=== PATIENT | female | born 1970 | race Caucasian/White ===

== ENCOUNTER → 2017-10-20 14:40 | Outpatient (CLI) | payer MEDICARE, BC, SELFPAY ==
[2017-10-20 21:50] LABS: Amphetamine/Metha Screen,Urine Negative ng/mL (<1000); Barbiturates Screen,Urine Negative ng/mL (<200); Benzodiazepines Screen,Urine Negative ng/mL (200); Cannabinoid Screen,Urine Negative ng/mL (<50); Cocaine Screen,Urine Negative ng/g (<300); Methadone Screen,Urine Negative ng/mL (<300); Opiate Screen,Urine Negative ng/mL (<300); Phencyclidine Screen,Urine Negative ng/mL (<25)
[2017-10-30 17:19] LABS: Opiates Negative (Cutoff=100)
== END ==
PROVIDERS: PCP Anesthesiology; Visit Provider Anesthesiology
DX: Z79.899 Other long term (current) drug therapy (principal)
CPT/HCPCS: 80305; 80361; 80365; G0480

== ENCOUNTER → 2017-11-09 10:14 | Outpatient (POV) | payer MEDICARE, BC, SELFPAY ==
[2017-11-09 10:34] VITALS: BP 148/95; PULSE 77; RESP 19; O2SAT 96; BMI 37.0
--- NOTE | 2017-11-09 11:00 | HMH.PAINSOAP ---
[facility] Pain Management SOAP Note Subjective:: She is a pleasant 47-year-old white female who presents today for medication refills. We are treating her for pain secondary to degenerative disc disease of her lumbar spine. She also has bilateral knee pain. She also has facet arthropathy. Patient is doing well at this time she is had bariatric surgery and is down 47 pounds. Patient states she still has the pain in her back and knees. States the pain is achy and dull. Pain is axial in nature. patient is currently being medically managed with [place] 5 mg 1 p.o. 3 times a day and tramadol 50 mg 1 by mouth 3 times a day. Patient is doing well with this regimen she states that it decreases her pain 50-60%. Patient denies side effects to pain medication. Patient's UDS was negative for all substances in the past. We will have her pill counted today prior to her receiving her new prescriptions. The patient and I had a discussion about this and she understands. Patient's dalton #[id number] reviewed and appropriate. ROS General: no recent weight change, no fever, no sleep disturbances Respiratory: no cough, no shortness of air, no recurring pulmonary infections Cardiovascular/Peripheral Vascular: No chest pain, No palpitations, no edema, no shortness of breath. Gastrointestinal: no incontinence, normal bowel movements reported Genitourinary: no incontinence Musculoskeletal: Lumbar back pain, bilateral knee pain Psychiatric: normal mood/ affect, Neurological: [denies weakness in extremities], [denies balance issues] Patient states the pain is Objective:: Physical Exam General: Alert and oriented x3, no acute distress, pleasant and cooperative, [on room air] Lungs: Resps E/U, Symmetrical chest expansion, Eyes: PERRL Musculoskeletal: Flexion and extension of lumbar spine somewhat guarded secondary to pain, deep tendon reflexes normal, strength in upper and lower extremities [5/5], [abnormal gait noted] Neurological: speech clear, machine tank operator equal, no gross sensory deficits Assessment:: Degenerative disc disease of the lumbar spine, lumbar radiculopathy, 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 Patient is supposed to take her medication for pill count by the end of today. If patient passes the pill count appropriately we will give her 2 prescriptions for [place] 5 mg p.o. 3 times daily. Patient's DALTON #[id number] reviewed and appropriate. Dr. Ibarra is reviewed this chart and agrees with this plan. We will see this patient again in 3 months. We also discussed potential facet injections in the future and RFA. This note was dictated using voice recognition software may contain errors or omissions
--- NOTE | 2017-11-09 11:03 | P.CONS_ITS ---
[facility] Pain Management SOAP Note Subjective:: She is a pleasant 47-year-old white female who presents today for medication refills. We are treating her for pain secondary to degenerative disc disease of her lumbar spine. She also has bilateral knee pain. She also has facet arthropathy. Patient is doing well at this time she is had bariatric surgery and is down 47 pounds. Patient states she still has the pain in her back and knees. States the pain is achy and dull. Pain is axial in nature. patient is currently being medically managed with [place] 5 mg 1 p.o. 3 times a day and tramadol 50 mg 1 by mouth 3 times a day. Patient is doing well with this regimen she states that it decreases her pain 50-60%. Patient denies side effects to pain medication. Patient's UDS was negative for all substances in the past. We will have her pill counted today prior to her receiving her new prescriptions. The patient and I had a discussion about this and she understands. Patient's dalton #[id number] reviewed and appropriate. ROS General: no recent weight change, no fever, no sleep disturbances Respiratory: no cough, no shortness of air, no recurring pulmonary infections Cardiovascular/Peripheral Vascular: No chest pain, No palpitations, no edema, no shortness of breath. Gastrointestinal: no incontinence, normal bowel movements reported Genitourinary: no incontinence Musculoskeletal: Lumbar back pain, bilateral knee pain Psychiatric: normal mood/ affect, Neurological: [denies weakness in extremities], [denies balance issues] Patient states the pain is Objective:: Physical Exam General: Alert and oriented x3, no acute distress, pleasant and cooperative, [ on room air] Lungs: Resps E/U, Symmetrical chest expansion, Eyes: PERRL Musculoskeletal: Flexion and extension of lumbar spine somewhat guarded secondary to pain, deep tendon reflexes normal, strength in upper and lower extremities [5/5], [abnormal gait noted] Neurological: speech clear, floor care technician equal, no gross sensory deficits Assessment:: Degenerative disc disease of the lumbar spine, lumbar radiculopathy, 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 Patient is supposed to take her medication for pill count by the end of today. If patient passes the pill count appropriately we will give her 2 prescriptions for [place] 5 mg p.o. 3 times daily. Patient's DALTON #[id number] reviewed and appropriate. Dr. Ibarra is reviewed this chart and agrees with this plan. We will see this patient again in 3 months. We also discussed potential facet injections in the future and RFA. This note was dictated using voice recognition software may contain errors or omissions
== END ==
PROVIDERS: Family Provider Nurse Practitioner Family; PCP Anesthesiology; Visit Provider Clinical Nurse Specialist Family Health
DX: M54.16 Radiculopathy, lumbar region (principal)
CPT/HCPCS: 99212

== ENCOUNTER → 2018-01-14 14:27 | Outpatient (REF) | payer MEDICARE, BC, SELFPAY ==
[2018-01-18 18:52] LABS: Amphetamine/Metha Screen,Urine Negative ng/mL (<1000); Barbiturates Screen,Urine Negative ng/mL (<200); Benzodiazepines Screen,Urine Negative ng/mL (200); Cannabinoid Screen,Urine Negative ng/mL (<50); Cocaine Screen,Urine Negative ng/g (<300); Methadone Screen,Urine Negative ng/mL (<300); Opiate Screen,Urine Negative ng/mL (<300); Phencyclidine Screen,Urine Negative ng/mL (<25)
== END ==
LOC: LAB 14:27
PROVIDERS: Visit Provider Nurse Practitioner Family
DX: Z79.899 Other long term (current) drug therapy (principal)
CPT/HCPCS: 80305

== ENCOUNTER → 2018-02-17 07:41 | Outpatient (CLI) | payer MEDICARE, BC, SELFPAY ==
[2018-02-17 08:21] LABS: Basophils # 0.1 K/mm3 (0-0.2); Basophils % 1.4 % (0.1-2.0); Eosinophils # 0.4 K/mm3 (0.0-0.4); Eosinophils % 5.1 % (0.1-12.0); Hemoglobin 14.6 g/dL (12.2-16.2); Lymphocytes # 3.1 K/mm3 (0.7-4.5); Lymphocytes % 41.6 K/mm3 (10-50); Mean Corpuscular HGB Conc 31.7 g/dL (31.8-35.4); Mean Corpuscular Hemoglobin 31.4 pg (27.0-31.2); Mean Corpuscular Volume 99.1 fl (81-99); Mean Platelet Volume 7.1 fl (7.4-10.4); Monocytes # 0.4 K/mm3 (0.1-1.0); Monocytes % 5.2 % (1.7-9.3); Neutrophils # 3.5 K/mm3 (1.8-7.8); Neutrophils % 46.7 % (37.0-80.0); Platelet Count 339 K/mm3 (142-424); Red Blood Count 4.65 M/mm3 (4.20-5.40); Red Cell Distribution Width 12.2 % (11.5-17.5); White Blood Count 7.5 K/mm3 (4.8-10.8)
[2018-02-17 08:43] LABS: Alanine Aminotransferase 21 U/L (12-78); Albumin Level 3.8 gm/dL (3.4-5.0); Albumin/Globulin Ratio 1.1 (1.1-1.8); Alkaline Phosphatase 101 U/L (46-116); Anion Gap 11.5 mEq/L (5-15); Aspartate Amino Transferase 17 U/L (15-37); Bilirubin,Total 0.2 mg/dL (0.2-1.0); Blood Urea Nitrogen 14 mg/dL (7-18); Calcium 9.5 mg/dL (8.5-10.1); Carbon Dioxide 30 mmol/L (21.0-32.0); Chloride 106 mmol/L (98-107); Chol/HDL Ratio 2.5 (1-3.5); Cholesterol 145 mg/dL (140-200); Creatinine,Serum 0.88 mg/dL (0.55-1.02); Estimated Glomerular Filt Rate 68 ml/min (>60); GFR (African American) 83 ML/MIN (>60); Globulin 3.4 gm/dl (1.3-3.2); Glucose 68 mg/dL (74-106); HDL Cholesterol 57 mg/dL (29-89); LDL Cholesterol 72 mg/dL (0-130); Potassium 4.5 mmoL/L (3.5-5.1); Sodium 143 mmol/L (136-145); Thyroid Stimulating Hormone 1.07 uIU/ml (0.358-3.740); Total Protein,Serum 7.2 gm/dL (6.4-8.2); Triglycerides 82 mg/dL (30-200); VLDL Cholesterol 16 mg/dL (0-40)
[2018-02-17 11:58] LABS: Hemoglobin A1C 6.3 % (0.0-7.0)
[2018-02-17 14:01] LABS: Amphetamine/Metha Screen,Urine Negative ng/mL (<1000); Barbiturates Screen,Urine Negative ng/mL (<200); Benzodiazepines Screen,Urine Negative ng/mL (200); Cannabinoid Screen,Urine Negative ng/mL (<50); Cocaine Screen,Urine Negative ng/g (<300); Methadone Screen,Urine Negative ng/mL (<300); Opiate Screen,Urine Negative ng/mL (<300); Phencyclidine Screen,Urine Negative ng/mL (<25)
[2018-02-18 11:18] LABS: Vitamin D 25 Hydroxy 57.3 ng/mL (30.0-100.0)
== END ==
PROVIDERS: Visit Provider Nurse Practitioner Family
DX: E11.9 Type 2 diabetes mellitus without complications (principal); Z79.899 Other long term (current) drug therapy
CPT/HCPCS: 36415; 80053; 80061; 80305; 82652; 83036; 84436; 84443; 85025

== ENCOUNTER → 2018-06-14 13:45 | Outpatient (POV) | payer BC, SELFPAY ==
--- NOTE | 2018-06-14 13:56 | XR_ITS ---
XR wrist LT min 3V HISTORY ITS.REASON: left wrist pain ORDERING PHYSICIAN: Elvia Negrete MD PATIENT AGE: 48 years Comparison: None FINDINGS: No fracture or dislocation. No lytic or blastic change. There is normal mineralization.. The joint spaces are well-preserved. No significant degenerative/arthritic changes. No erosive changes evident.. Small calcific density is present at the space between the base of the first and second metacarpals on the oblique view nonspecific IMPRESSION: Essentially negative left wrist
== END ==
PROVIDERS: Family Provider Nurse Practitioner Family; PCP Anesthesiology; Visit Provider Specialist
DX: M25.532 Pain in left wrist (principal); R29.898 Other symptoms and signs involving the musculoskeletal system; R20.2 Paresthesia of skin
CPT/HCPCS: 73110; 95886; 95908

== ENCOUNTER → 2018-06-23 14:46 | Outpatient (CLI) | payer BC, SELFPAY ==
--- NOTE | 2018-06-23 15:08 | XR_ITS ---
XR chest 2V HISTORY: ITS.REASON: HTN, SMOKER ORDERING PHYSICIAN: Edgar Barrow MD PATIENT AGE: 48 years COMPARISON: 10/23/2014 FINDINGS: The cardiomediastinal silhouette and pulmonary vascularity are within normal limits. The lungs are clear without infiltrates, suspicious nodules, or pleural effusions. No acute bony abnormalities. IMPRESSION: Negative chest, no acute finding
[2018-06-23 15:41] LABS: Anion Gap 10.8 mEq/L (5-15); Blood Urea Nitrogen 17 mg/dL (7-18); Calcium 9.4 mg/dL (8.5-10.1); Carbon Dioxide 31 mmol/L (21.0-32.0); Chloride 104 mmol/L (98-107); Creatinine,Serum 0.87 mg/dL (0.55-1.02); Estimated Glomerular Filt Rate 69 ml/min (>60); GFR (African American) 83 ML/MIN (>60); Glucose 63 mg/dL (74-106); Potassium 4.8 mmoL/L (3.5-5.1); Sodium 141 mmol/L (136-145)
[2018-06-23 15:58] LABS: Basophils # 0.1 K/mm3 (0-0.2); Basophils % 1.3 % (0.1-2.0); Eosinophils # 0.4 K/mm3 (0.0-0.4); Eosinophils % 4.8 % (0.1-12.0); Hematocrit 44.7 % (37.0-47.0); Hemoglobin 14.7 g/dL (12.2-16.2); Lymphocytes # 2.6 K/mm3 (0.7-4.5); Lymphocytes % 32.7 K/mm3 (10-50); Mean Corpuscular Hemoglobin 31.9 pg (27.0-31.2); Mean Corpuscular Volume 96.7 fl (81-99); Mean Platelet Volume 6.5 fl (7.4-10.4); Monocytes # 0.4 K/mm3 (0.1-1.0); Monocytes % 4.9 % (1.7-9.3); Neutrophils # 4.5 K/mm3 (1.8-7.8); Neutrophils % 56.4 % (37.0-80.0); Platelet Count 297 K/mm3 (142-424); Red Blood Count 4.62 M/mm3 (4.20-5.40); Red Cell Distribution Width 12.5 % (11.5-17.5)
== END ==
PROVIDERS: PCP Nurse Practitioner Family; Visit Provider Orthopaedic Surgery
DX: Z01.818 Encounter for other preprocedural examination (principal); G56.02 Carpal tunnel syndrome, left upper limb
CPT/HCPCS: 36415; 71046; 80048; 85025; 93005

== ENCOUNTER → 2019-03-16 13:26 | Outpatient (CLI) | payer MEDICARE, BC, SELFPAY ==
[2019-03-16 14:18] LABS: Basophils # 0.1 K/mm3 (0-0.2); Eosinophils # 0.6 K/mm3 (0.0-0.4); Hematocrit 44.2 % (37.0-47.0); Lymphocytes # 2.9 K/mm3 (0.7-4.5); Lymphocytes % 35.5 % (10-50); Mean Corpuscular HGB Conc 31.7 g/dL (31.8-35.4); Mean Corpuscular Hemoglobin 32.5 pg (27.0-31.2); Mean Corpuscular Volume 102.5 fl (81-99); Mean Platelet Volume 7.7 fl (7.4-10.4); Monocytes # 0.4 K/mm3 (0.1-1.0); Monocytes % 4.7 % (1.7-9.3); Neutrophils # 4.2 K/mm3 (1.8-7.8); Neutrophils % 51.7 % (37.0-80.0); Platelet Count 365 K/mm3 (142-424); Red Blood Count 4.31 M/mm3 (4.20-5.40); Red Cell Distribution Width 13.2 % (11.5-17.5); White Blood Count 8.1 K/mm3 (4.8-10.8)
[2019-03-16 14:43] LABS: Alanine Aminotransferase 39 U/L (12-78); Albumin Level 3.6 gm/dL (3.4-5.0); Albumin/Globulin Ratio 1.1 (1.1-1.8); Alkaline Phosphatase 94 U/L (46-116); Anion Gap 13.3 mEq/L (5-15); Aspartate Amino Transferase 21 U/L (15-37); Bilirubin,Total 0.4 mg/dL (0.2-1.0); Blood Urea Nitrogen 17 mg/dL (7-18); Calcium 8.7 mg/dL (8.5-10.1); Carbon Dioxide 28 mmol/L (21.0-32.0); Chloride 102 mmol/L (98-107); Chol/HDL Ratio 3.8 (1-3.5); Cholesterol 183 mg/dL (140-200); Creatinine,Serum 0.93 mg/dL (0.55-1.02); Estimated Glomerular Filt Rate 64 ml/min (>60); GFR (African American) 77 ML/MIN (>60); Globulin 3.4 gm/dl (1.3-3.2); Glucose 114 mg/dL (74-106); HDL Cholesterol 48 mg/dL (29-89); LDL Cholesterol 105 mg/dL (0-130); Potassium 4.3 mmoL/L (3.5-5.1); Sodium 139 mmol/L (136-145); T4 (Thyroxine) 8.3 ug/dl (4.7-13.3); Thyroid Stimulating Hormone 3.33 uIU/ml (0.358-3.740); Triglycerides 152 mg/dL (30-200); VLDL Cholesterol 30 mg/dL (0-40)
[2019-03-16 15:44] LABS: Hemoglobin A1C 6.8 % (0.0-7.0)
[2019-03-18 07:14] LABS: Microalbumin, Urine 20.1 ug/mL (Not Estab.); Vitamin D 25 Hydroxy 34.2 ng/mL (30.0-100.0)
== END ==
PROVIDERS: Visit Provider Nurse Practitioner Family
DX: E11.9 Type 2 diabetes mellitus without complications (principal); E66.9 Obesity, unspecified; R53.83 Other fatigue; Z79.899 Other long term (current) drug therapy; Z79.4 Long term (current) use of insulin
CPT/HCPCS: 80053; 80061; 82043; 82652; 83036; 84436; 84443; 85025

== ENCOUNTER → 2020-07-18 18:07 | Outpatient (CLI) | payer MEDICARE, BC, SELFPAY ==
[2020-07-18 18:46] LABS: Basophils # 0.1 K/mm3 (0-0.2); Basophils % 1.3 % (0.1-2.0); Eosinophils # 0.5 K/mm3 (0.0-0.4); Eosinophils % 4.4 % (0.1-12.0); Hematocrit 47.1 % (37.0-47.0); Lymphocytes # 3.4 K/mm3 (0.7-4.5); Mean Corpuscular HGB Conc 31.9 g/dL (31.8-35.4); Mean Corpuscular Hemoglobin 31.9 pg (27.0-31.2); Mean Platelet Volume 7.4 fl (7.4-10.4); Monocytes # 0.5 K/mm3 (0.1-1.0); Monocytes % 4.9 % (1.7-9.3); Neutrophils # 5.9 K/mm3 (1.8-7.8); Neutrophils % 56.4 % (37.0-80.0); Platelet Count 330 K/mm3 (142-424); Red Blood Count 4.72 M/mm3 (4.20-5.40); Red Cell Distribution Width 12.8 % (11.5-17.5); White Blood Count 10.4 K/mm3 (4.8-10.8)
[2020-07-18 18:50] LABS: Alanine Aminotransferase 20 U/L (12-78); Albumin Level 4.4 g/dl (3.5-5.0); Albumin/Globulin Ratio 1.4 (1.1-1.8); Alkaline Phosphatase 114 U/L (38-126); Anion Gap 11.5 mEq/L (5-15); Aspartate Amino Transferase 28 U/L (14-36); Bilirubin,Total 0.4 mg/dl (0.2-1.3); Blood Urea Nitrogen 16 mg/dl (7-17); Calcium 10.1 mg/dl (8.4-10.2); Carbon Dioxide 30 mmol/L (22.0-30.0); Chloride 105 mmol/L (98-107); Chol/HDL Ratio 4.1 (1-3.5); Cholesterol 229 mg/dl (140-200); Estimated Glomerular Filt Rate 66 ml/min (>60); GFR (African American) 80 ML/MIN (>60); Globulin 3.1 g/dL (1.3-3.2); Glucose 69 mg/dl (74-100); HDL Cholesterol 56 mg/dl (40-60); Potassium 4.5 mmoL/L (3.5-5.1); Sodium 142 mmol/L (136-145); Total Protein,Serum 7.5 g/dl (6.3-8.2); Triglycerides 338 mg/dl (30-150); VLDL Cholesterol 68 mg/dL (0-40)
[2020-07-18 19:02] LABS: Direct LDL Cholesterol 127.02 mg/dL (100-129)
[2020-07-18 19:06] LABS: T4 (Thyroxine) 8.8 ug/dl (5.53-11.0)
[2020-07-18 19:20] LABS: Thyroid Stimulating Hormone 0.79 uIU/mL (0.465-4.68)
[2020-07-18 20:33] LABS: Creatinine,Urine Random 85 mg/dL (Not Estab.); Hemoglobin A1C 6.6 % (4.0-6.0)
== END ==
PROVIDERS: Visit Provider Nurse Practitioner Family
DX: E03.9 Hypothyroidism, unspecified (principal); E11.9 Type 2 diabetes mellitus without complications; E55.9 Vitamin D deficiency, unspecified; E78.5 Hyperlipidemia, unspecified; I10 Essential (primary) hypertension; M54.2 Cervicalgia; F32.9 Major depressive disorder, single episode, unspecified; Z79.4 Long term (current) use of insulin
CPT/HCPCS: 80053; 80061; 82043; 82306; 82570; 83036; 84436; 84443; 85025

== ENCOUNTER → 2020-07-26 08:02 | Outpatient (CLI) | payer MEDICARE, BC, SELFPAY ==
--- NOTE | 2020-07-26 08:02 | CT_ITS ---
PROCEDURE: CT SOFT TISSUE NECK WO CON CLINICAL HISTORY: enlarged lymph node r side enlarged lymph node right side x 3 weeks marked wtih bb COMPARISON: No exams were available for comparison TECHNIQUE: Oral Contrast: None IV Contrast: None Axial images obtained with sagittal and coronal reformats. All CT scans at the facility use one or more dose reduction, viz: automated exposure control, ma/kV adjustment per patient size (including targeted exams where dose is matched to indication, i.e. head), or iterative reconstruction technique. FINDINGS: BB is placed along the right facial area to yulissa the area of palpable concern. Study is performed without contrast. The nasopharynx, oropharynx hypopharynx and glottic and epiglottic region have an unremarkable appearance. Unremarkable appearing thyroid gland. There are scattered small lymph nodes in the neck but no dominant adenopathy is evident. Parotid gland is present deep to the placed BB. There is a small nodular density along the anterior aspect of the parotid gland just superior to this BB measuring 5 mm and may be due to small lymph node. On the left side there are at least 2 small nodular opacities of the parotid gland at 5 mm and may be due to small lymph nodes. No abscess or other significant anomaly. Lung apices are clear. Degenerative disc disease is present at C5-C6 C6-C7 and C7-T1 canal stenosis is present at C5-C6 C6-C7 and C7-T1 with bulging disc and broad-based central disc protrusion at C7-T1. IMPRESSION: 1. There are small cervical lymph nodes and small nodular densities of the parotid glands on both sides which could be due to small lymph nodes. Consider six-month follow-up to confirm short term stability as small thyroid lesions such as pleomorphic adenoma or Warthin's tumors are also considered but felt to be less likely. 2. Degenerative changes of the cervical spine with canal stenosis as described above Dictated by: Manoj Martinez MD 07/27/2020 10:03 Manoj Martinez MD in [place] 07/27/2020 10:03
== END ==
PROVIDERS: PCP Nurse Practitioner Family; Visit Provider Nurse Practitioner Family
DX: R59.0 Localized enlarged lymph nodes (principal)
CPT/HCPCS: 70490

== ENCOUNTER → 2020-08-30 09:30 | Outpatient (CLI) | payer MEDICARE, BC, SELFPAY ==
[2020-08-30 11:13] LABS: Ferritin 15.9 ng/ml (11.1-264)
[2020-08-30 11:48] LABS: Vitamin B12 > 1000 pg/mL (239-931)
== END ==
PROVIDERS: Visit Provider Specialist
DX: N18.9 Chronic kidney disease, unspecified (principal); E83.10 Disorder of iron metabolism, unspecified; G62.9 Polyneuropathy, unspecified; G89.4 Chronic pain syndrome
CPT/HCPCS: 36415; 82607; 82728; 82746

== ENCOUNTER → 2020-10-12 12:08 | Outpatient (CLI) | payer MEDICARE, BC, SELFPAY | PROVIDERS: PCP Nurse Practitioner Family; Visit Provider Specialist | DX: G47.33 Obstructive sleep apnea (adult) (pediatric) (principal) | CPT/HCPCS: G0399 ==

== ENCOUNTER 2021-01-24 11:37 | Day surgery (SDC) | payer MEDICARE, BC, SELFPAY ==
--- NOTE | 2021-01-24 09:12 | CA_ITS ---
APPROVED REPORT Right Upper Extremity Venous Study for DVT. Monument Installer: Kusum Cespedes, RUSST Indications Upper Extremity Pain: Right Current Smoker PALPABLE PULSATING KNOT RT WRIST SINCE FALLING IN OCT. Risk Factors Trauma Vein Imaging IJV (R): Normal phasic flow is seen. Normal flow, augmentation and compression is seen. No evidence of Deep Vein Thrombosis. No abnormalities are demonstrated. SCV (R): Normal phasic flow is seen. Normal flow, augmentation and compression is seen. No evidence of Deep Vein Thrombosis. No abnormalities are demonstrated. Axillary (R): Normal phasic flow is seen. Normal flow, augmentation and compression is seen. No evidence of Deep Vein Thrombosis. No abnormalities are demonstrated. Brachial (R): Compressible Basilic (R): Compressible Cephalic (R): Compressible Radial (R): Compressible Ulnar (R): Compressible Findings Study suggests no evidence of DVT or SVT of the right upper extremity. There is a 1.4X 1.0 cm complex lesion seen in the area of patients palpable knot right wrist. This area is connected to the right radial artery,with bloodflow seen in to the lesion. Findings are suggestive of pseudoaneurysm with flow. Thrombus noted within the pseudoaneurysm. Conclusion Study suggests no evidence of DVT or SVT of the right upper extremity. There is a 1.4X 1.0 cm complex lesion seen in the area of patients palpable knot right wrist. This area is connected to the right radial artery,with bloodflow seen in to the lesion, suggestive of pseudoaneurysm. Critical Notification Critical Value: Yes Physician Notified Date: 01/24/2021 Time: 10:20 Physician Name: Veda Scott Electronically signed by : Gillian Barrow, 01/24/2021 16:56:51
[2021-01-24 12:15] VITALS: BMI 42.0
[2021-01-24 12:16] LABS: Basophils # 0.2 K/mm3 (0-0.2); Basophils % 1.6 % (0.1-2.0); Eosinophils # 0.5 K/mm3 (0.0-0.4); Eosinophils % 4.8 % (0.1-12.0); Hematocrit 44.9 % (37.0-47.0); Hemoglobin 14.6 g/dL (12.2-16.2); Lymphocytes # 4.5 K/mm3 (0.7-4.5); Lymphocytes % 44.7 % (10-50); Mean Corpuscular HGB Conc 32.6 g/dL (31.8-35.4); Mean Corpuscular Hemoglobin 31.8 pg (27.0-31.2); Mean Corpuscular Volume 97.5 fl (81-99); Mean Platelet Volume 7.2 fl (7.4-10.4); Monocytes # 0.5 K/mm3 (0.1-1.0); Monocytes % 5.3 % (1.7-9.3); Neutrophils # 4.4 K/mm3 (1.8-7.8); Neutrophils % 43.7 % (37.0-80.0); Platelet Count 376 K/mm3 (142-424); Red Cell Distribution Width 13.7 % (11.5-17.5); White Blood Count 10.1 K/mm3 (4.8-10.8)
[2021-01-24 12:26] LABS: Anion Gap 8.6 mEq/L (5-15); Blood Urea Nitrogen 14 mg/dl (7-17); Calcium 10.1 mg/dl (8.4-10.2); Carbon Dioxide 33 mmol/L (22.0-30.0); Chloride 106 mmol/L (98-107); Creatinine Clearance Estimated 71 mL/min (50-200); Estimated Glomerular Filt Rate 75 ml/min (>60); GFR (African American) 91 ML/MIN (>60); Potassium 4.6 mmoL/L (3.5-5.1); Sodium 143 mmol/L (136-145)
--- NOTE | 2021-01-24 12:28 | CA_ITS ---
APPROVED REPORT Laterality: Unilateral right Supervisor Feed House: Kusum Cespedes RVT Symptoms Current Smoker Comments PSEUDOANEURYSM RT WRIST PT SCANNED BEFORE COMPRESSION CLAMP APPLIED,SCANNED RIGHT AFTER APPLICATION AND THAN RESCANNED AFTER COMPRESSION FOR [address] CHEN PRESENT. Findings Colorflow seen pre compression in the right radial and ulnar arteries. No colorflow seen in the right radial artery with compression applied. Colorflow seen in the right radial artery post compression. No colorflow seen in the pseudoaneurysm sac post compression. Patient will be rescanned 01/25/21 to assess residual flow. Conclusion Colorflow seen pre compression in the right radial and ulnar arteries. No colorflow seen in the right radial artery with compression applied. Colorflow seen in the right radial artery post compression. No colorflow seen in the pseudoaneurysm sac post compression. Patient will be rescanned 01/25/21 to assess residual flow. Electronically signed by : Gillian Barrow, 01/24/2021 16:57:50
--- NOTE | 2021-01-24 12:31 | SUR.PREOP ---
1230 - PT ARRIVE TO FIXED ROUTE OPERATOR AMBULATORY W/ NO ISSUES. BP = 152/102. HR = 90. O2 ON RA = 96%. PT ALERT AND ORIENTED. SMALL PSEUDO KNOT NOTED TO R WRIST AREA. PT DENIES ANY OTHER ISSUES. OBTAINING RADIAL US BEFORE PLACEMENT OF RADIAL BAND. 1234 - RADIAL BAND PLACED ABOVE PSEUDO SITE WITH 15ML AIR. PT DENIES ANY PAIN OR ISSUES W/ BAND PLACEMENT. MD AT PT SIDE AND AGREES W/ BAND PLACEMENT. BAND TO STAY IN PLACE FOR 45 MIN PER MD ORDER. REPEAT US SHOWS BAND IN GOOD POSITION.
[2021-01-24 12:46] LABS: Glucose 38 mg/dl (74-100)
--- NOTE | 2021-01-24 12:50 | SUR.PREOP ---
LAB REPORTED BS OF 38. PT HAS SINCE HAD ORANGE JUICE AND A TURKEY SANDWHICH. RECHECKED BS AND IT WAS 117 AT 1250. PT IN NO DISTRESS.
[2021-01-24 12:56] LABS: POC Glucose,Bedside 117 (70-110)
--- NOTE | 2021-01-24 13:29 | SUR.PHASEII ---
Band taken off of RT wrist per M.D. , determined pseudoaneurysm resolved through [place]., M.D. sent patient home.
== END 2021-01-24 13:40 | disposition home or self-care (01) ==
LOC: CATHLAB 11:37
PROVIDERS: Internal Medicine; PCP Nurse Practitioner Family; Visit Provider Physician Assistant
DX: R22.31 Localized swelling, mass and lump, right upper limb (principal); I72.1 Aneurysm of artery of upper extremity; I74.2 Embolism and thrombosis of arteries of the upper extremities; M25.531 Pain in right wrist; Z11.52 Encounter for screening for COVID-19; E11.9 Type 2 diabetes mellitus without complications; Z79.4 Long term (current) use of insulin
CPT/HCPCS: 80048; 82962; 85025; 93931; 93971; U0003

== ENCOUNTER → 2021-01-25 10:55 | Outpatient (CLI) | payer MEDICARE, BC, SELFPAY ==
--- NOTE | 2021-01-25 11:10 | CA_ITS ---
APPROVED REPORT Laterality: Unilateral right Top Lift Compressor: RUSS ColinT Indications Current Smoker Comments F/U PSEUDOANEURYSM RT WRIST Findings 1.4 X 1.3 cm complex lesion seen in area of patient complaint right wrist, probable heamtoma. No evidence of residual pseudoaneurysm seen. Conclusion 1.4 X 1.3 cm complex lesion seen in area of patient complaint right wrist, probable heamtoma. No evidence of residual pseudoaneurysm seen. Electronically signed by : Manoj Martinez MD 01/28/2021 17:37:14
== END ==
PROVIDERS: PCP Nurse Practitioner Family; Visit Provider Internal Medicine
DX: I72.1 Aneurysm of artery of upper extremity (principal)
CPT/HCPCS: 93931

== ENCOUNTER → 2021-01-31 07:31 | Outpatient (CLI) | payer MEDICARE, BC, SELFPAY ==
--- NOTE | 2021-01-31 08:02 | CA_ITS ---
APPROVED REPORT Laterality: Unilateral right Payroll Accounting Specialist: Kusum Cespedes RVT Indications Current Smoker Comments F/U PSEUDOANEURYSM, KNOT RT WRIST SINCE FALL IN OCT. Findings Study suggests no evidence of pseudoaneurysm seen in the right wrist. 1.6 x 1.5 cm complex lesion seen in the area of patient complaint, probable residual hematoma. Conclusion Study suggests no evidence of pseudoaneurysm seen in the right wrist. 1.6 x 1.5 cm complex lesion seen in the area of patient complaint, probable residual hematoma. Electronically signed by : Manoj Martinez MD 01/31/2021 15:57:38
--- NOTE | 2021-01-31 08:10 | PC.NURSE ---
PFT Completed without complications. Albuterol 0.083% given via HHN, per written protocol, Pt tolerated tx well.
== END ==
PROVIDERS: PCP Nurse Practitioner Family; Visit Provider Physician Assistant
DX: R06.02 Shortness of breath (principal); M25.531 Pain in right wrist; I72.1 Aneurysm of artery of upper extremity
CPT/HCPCS: 93931; 94060; 94726; 94729

== ENCOUNTER → 2021-12-23 16:52 | Outpatient (CLI) | payer MEDICARE, BC, SELFPAY ==
[2021-12-23 13:41] LABS: Alanine Aminotransferase 34 U/L (12-78); Albumin Level 4.2 g/dl (3.5-5.0); Albumin/Globulin Ratio 1.6 (1.1-1.8); Alkaline Phosphatase 88 U/L (38-126); Aspartate Amino Transferase 39 U/L (14-36); Bilirubin,Total 0.4 mg/dl (0.2-1.3); Blood Urea Nitrogen 11 mg/dl (7-17); Calcium 9.2 mg/dl (8.4-10.2); Carbon Dioxide 26 mmol/L (22.0-30.0); Chloride 109 mmol/L (98-107); Chol/HDL Ratio 3.5 (1-3.5); Cholesterol 181 mg/dl (140-200); Estimated Glomerular Filt Rate 75 ml/min (>60); GFR (African American) 91 ML/MIN (>60); Globulin 2.6 g/dL (1.3-3.2); Glucose 60 mg/dl (74-100); HDL Cholesterol 52 mg/dl (40-60); Sodium 141 mmol/L (136-145); Total Protein,Serum 6.8 g/dl (6.3-8.2); Triglycerides 135 mg/dl (30-150); VLDL Cholesterol 27 mg/dL (0-40)
[2021-12-23 13:52] LABS: Direct LDL Cholesterol 89.83 mg/dL (100-129)
== END ==
PROVIDERS: PCP Family Medicine; Visit Provider Family Medicine
DX: E11.9 Type 2 diabetes mellitus without complications (principal); I74.2 Embolism and thrombosis of arteries of the upper extremities; Z00.00 Encounter for general adult medical examination without abnormal findings; Z79.4 Long term (current) use of insulin
CPT/HCPCS: 80053; 80061; 83036

== ENCOUNTER → 2023-02-24 23:26 | Outpatient (CLI) | payer MEDICARE, BC, SELFPAY ==
[2023-02-24 18:51] LABS: Basophils # 0.1 K/mm3 (0-0.2); Basophils % 1.1 % (0.1-2.0); Eosinophils # 0.3 K/mm3 (0.0-0.4); Eosinophils % 3.7 % (0.1-12.0); Hematocrit 46.1 % (37.0-47.0); Hemoglobin 14.7 g/dL (12.2-16.2); Lymphocytes # 3.7 K/mm3 (0.7-4.5); Lymphocytes % 46.6 % (10-50); Mean Corpuscular HGB Conc 31.8 g/dL (31.8-35.4); Mean Corpuscular Hemoglobin 31.3 pg (27.0-31.2); Mean Corpuscular Volume 98.3 fl (81-99); Mean Platelet Volume 8.1 fl (7.4-10.4); Monocytes # 0.4 K/mm3 (0.1-1.0); Monocytes % 4.5 % (1.7-9.3); Neutrophils # 3.5 K/mm3 (1.8-7.8); Neutrophils % 44.1 % (37.0-80.0); Platelet Count 283 K/mm3 (142-424); Red Blood Count 4.68 M/mm3 (4.20-5.40); Red Cell Distribution Width 12.9 % (11.5-17.5)
[2023-02-24 19:09] LABS: Alanine Aminotransferase 29 U/L (12-78); Albumin Level 4.2 g/dl (3.5-5.0); Albumin/Globulin Ratio 1.4 (1.1-1.8); Alkaline Phosphatase 101 U/L (38-126); Anion Gap 15.5 mEq/L (5-15); Aspartate Amino Transferase 32 U/L (14-36); Bilirubin,Total 0.4 mg/dl (0.2-1.3); Blood Urea Nitrogen 11 mg/dl (7-17); Calcium 9.1 mg/dl (8.4-10.2); Carbon Dioxide 27 mmol/L (22.0-30.0); Chloride 103 mmol/L (98-107); Chol/HDL Ratio 3.1 (1-3.5); Cholesterol 199 mg/dl (140-200); Estimated Glomerular Filt Rate 75 ml/min (>60); GFR (African American) 90 ML/MIN (>60); Globulin 2.9 g/dL (1.3-3.2); Glucose 157 mg/dl (74-100); HDL Cholesterol 65 mg/dl (40-60); Potassium 4.5 mmoL/L (3.5-5.1); Sodium 141 mmol/L (136-145); Total Protein,Serum 7.1 g/dl (6.3-8.2); Triglycerides 128 mg/dl (30-150); VLDL Cholesterol 26 mg/dL (0-40)
[2023-02-24 19:21] LABS: Direct LDL Cholesterol 102.93 mg/dL (100-129)
[2023-02-24 19:25] LABS: Hemoglobin A1C 7.8 % (4.0-6.0)
[2023-02-24 19:42] LABS: Thyroid Stimulating Hormone < 0.02 uIU/mL (0.465-4.68)
== END ==
PROVIDERS: PCP Family Medicine; Visit Provider Family Medicine
DX: E78.5 Hyperlipidemia, unspecified (principal); E11.59 Type 2 diabetes mellitus with other circulatory complications; Z79.4 Long term (current) use of insulin
CPT/HCPCS: 80053; 80061; 83036; 84443; 85025

== ENCOUNTER → 2023-08-11 09:29 | Outpatient (CLI) | payer MEDICARE, BC, SELFPAY ==
--- NOTE | 2023-08-11 09:29 | MR_ITS ---
FINAL REPORT TECHNIQUE: Multiplanar MR without contrast. CLINICAL HISTORY: .PATIENT FELL 5-6WEEKS AGO. PAIN AROUND 1ST METACARPAL COMPARISON: None FINDINGS: There is bone marrow edema and cystic changes in the first carpometacarpal articulation, arthritic in nature. There are a few areas of cystic change and sclerosis in the carpus, without evidence of fracture. Carpal tunnel is unremarkable. There is a partial tear of the ulnar attachment of the TFCC. Visualized tendons are unremarkable. Major ligaments are intact. No cystic or soft tissue mass lesion is seen. IMPRESSION: There is advanced degenerative change in the left wrist, particularly in the first carpometacarpal articulation. Partial tear of the ulnar attachment of the TFCC. Reviewed, Interpreted and Dictated by Neelima Mathews MD Transcribed by Beba Culp Authenticated and [facility]
== END ==
PROVIDERS: PCP Family Medicine; Visit Provider Orthopaedic Surgery
DX: M25.532 Pain in left wrist (principal)
CPT/HCPCS: 73221

== ENCOUNTER 2023-12-22 08:31 | Outpatient (CLI) | payer MEDICARE, BC, SELFPAY ==
--- NOTE | 2023-12-22 08:36 | XR_ITS ---
FINAL REPORT CLINICAL HISTORY: left thumb pain COMPARISON: None FINDINGS: LEFT HAND: 4 views of the left hand were obtained. There is no acute fracture or dislocation. There is moderate degenerative change of the 1st CMC joint. Visualized joint spaces are normally aligned. Soft tissues are unremarkable. IMPRESSION: Moderate degenerative change without acute bony abnormality. Reviewed, Interpreted and Dictated by Yon Carnes III, MD Transcribed by Sadie Abdi Authenticated and [facility]
== END 2023-12-22 23:59 ==
LOC: RAD 08:32
PROVIDERS: PCP Nurse Practitioner Family; Visit Provider Orthopaedic Surgery
DX: M79.645 Pain in left finger(s) (principal)
CPT/HCPCS: 73130

== ENCOUNTER 2024-02-18 18:00 | Outpatient (CLI) | payer MEDICARE, BC, SELFPAY ==
[2024-02-18 18:13] LABS: Basophils # 0.1 K/mm3 (0-0.2); Basophils % 1.2 % (0.1-2.0); Eosinophils # 0.3 K/mm3 (0.0-0.4); Hematocrit 44.4 % (37.0-47.0); Hemoglobin 14.1 g/dL (12.2-16.2); Lymphocytes # 3.1 K/mm3 (0.7-4.5); Lymphocytes % 31.7 % (10-50); Mean Corpuscular HGB Conc 31.7 g/dL (31.8-35.4); Mean Corpuscular Hemoglobin 32.8 pg (27.0-31.2); Mean Corpuscular Volume 103.6 fl (81-99); Mean Platelet Volume 9.2 fl (7.4-10.4); Monocytes # 0.5 K/mm3 (0.1-1.0); Monocytes % 4.9 % (1.7-9.3); Neutrophils # 5.8 K/mm3 (1.8-7.8); Neutrophils % 59.3 % (37.0-80.0); Platelet Count 315 K/mm3 (142-424); Red Blood Count 4.29 M/mm3 (4.20-5.40); Red Cell Distribution Width 14.6 % (11.5-17.5); White Blood Count 9.8 K/mm3 (4.8-10.8)
[2024-02-18 19:05] LABS: 25-OH Vitamin D, Total 26.4 ng/mL (30-100); Chloride 101 mmol/L (98-107); Potassium 4.6 mmoL/L (3.5-5.1); Sodium 136 mmol/L (136-145)
[2024-02-18 19:07] LABS: Blood Urea Nitrogen 14 mg/dl (7-17); Estimated Glomerular Filt Rate 74 ml/min (>60); GFR (African American) 90 ML/MIN (>60)
[2024-02-18 19:08] LABS: Alanine Aminotransferase 41 U/L (12-78); Albumin Level 3.8 g/dl (3.5-5.0); Albumin/Globulin Ratio 1.4 (1.1-1.8); Alkaline Phosphatase 113 U/L (38-126); Anion Gap 12.6 mEq/L (5-15); Aspartate Amino Transferase 31 U/L (14-36); Bilirubin,Total 0.4 mg/dl (0.2-1.3); Calcium 9.4 mg/dl (8.4-10.2); Carbon Dioxide 27 mmol/L (22.0-30.0); Chol/HDL Ratio 2.3 (1-3.5); Cholesterol 152 mg/dl (140-200); Globulin 2.7 g/dL (1.3-3.2); Glucose 219 mg/dl (74-100); HDL Cholesterol 66 mg/dl (40-60); Total Protein,Serum 6.5 g/dl (6.3-8.2); Triglycerides 99 mg/dl (30-150); VLDL Cholesterol 20 mg/dL (0-40)
[2024-02-18 19:19] LABS: Direct LDL Cholesterol 65.23 mg/dL (100-129)
[2024-02-18 19:38] LABS: Thyroid Stimulating Hormone 3.91 uIU/mL (0.465-4.68)
[2024-02-18 19:41] LABS: Hemoglobin A1C 9.3 % (4.0-6.0)
== END 2024-02-18 23:59 | disposition home or self-care (01) ==
LOC: LAB.DROPOF 02-19 07:29
PROVIDERS: PCP Nurse Practitioner Family; Visit Provider Nurse Practitioner Family
DX: E11.9 Type 2 diabetes mellitus without complications (principal); E03.9 Hypothyroidism, unspecified; I74.2 Embolism and thrombosis of arteries of the upper extremities; E55.9 Vitamin D deficiency, unspecified; Z68.41 Body mass index [BMI] 40.0-44.9, adult; Z79.4 Long term (current) use of insulin; Z79.85 Long-term (current) use of injectable non-insulin antidiabetic drugs
CPT/HCPCS: 80050; 80053; 80061; 82306; 83036; 84443; 85025

== ENCOUNTER 2024-03-01 08:41 | Outpatient (CLI) | payer MEDICARE, BC, SELFPAY ==
--- NOTE | 2024-03-01 08:42 | CA_ITS ---
FINAL REPORT CLINICAL HISTORY: carotid artery stenosis, COPD, HTN, HLD, DM, smoker, dizziness, obesity. COMPARISON: None FINDINGS: RIGHT CAROTID: CCA PSV -86 cm/sec ICA PSV -89 cm/sec ICA/CCA PSV ratio -1.05. Comments: Mild plaque disease is noted. LEFTCAROTID: CCA PSV -112. cm/sec ICA PSV -96. cm/sec ICA/CCA PSV ratio -1.04. Comments: Mild plaque disease is noted. Antegrade flow is seen within the vertebral arteries. IMPRESSION: Carotid stenosis classified less than 50% Antegrade flow bilateral vertebral arteries. Reviewed, Interpreted and Dictated by Neelima Mathews MD Transcribed by Beba Culp Authenticated and [facility]
--- OUTSIDE RECORDS SUMMARY | 2024-03-01 08:43 | XMS_ITS | Continuity of Care Document ---
Author Name Unknown Address [address] [place] [address] [id number] Organization [facility] Phone Care Team Providers Care Terminal System Operator Name Role Phone SRINI SKELTON Primary Care GENESIS JEROME Admitting GENESIS JEROME Primary Attending GENESIS JEROME Unavailable ALLERGIES AND ADVERSE REACTIONS ALLERGIES AND ADVERSE REACTIONS Code System Allergy Substance Adverse Reaction Date Reaction (Severity) Comment Status Reported By Updated By Ryan (Free Text Allergy) Adverse reaction to substance Not Specified active [id number] on February 01, 2024 1:39:42 PM [facility] [id number] SNOMED CT NSAIDs Adverse reaction to substance Not Specified active [id number] on February 01, 2024 1:39:42 PM [facility] FAMILY HISTORY RELATION: Father Status: LIVING SNOMED-CT Diagnosis Age At Onset [id number] Heart disease [id number] Diabetes mellitus [id number] Myocardial infarction RELATION: Father Status: Cause of : Congestive heart failure Age at : 68 SNOMED-CT Diagnosis Age At Onset Information not available RELATION: Mother Status: LIVING SNOMED-CT Diagnosis Age At Onset [id number] Malignant tumor of breast RELATION: Mother Status: LIVING SNOMED-CT Diagnosis Age At Onset [id number] Heart disease RELATION: Mother Status: Cause of : Sarcoidosis Age at : Unknown SNOMED-CT Diagnosis Age At Onset Information not available RESULTS Patient: SIERRA Centeno Date of : 1970 LABORATORY RESULTS ORDER 100: CBC AUTO W DIFF ( LOINC: 36612-1) ORDER DATE: February 01, 2024 1:50:00 PM [facility] Specimen Source: Whole Blood Specimen Type: Whole blood s ample PERFORMING LAB: [address] [id number] Result Comment: Final Result Date: February 01, 2024 2:02:00 PM UTC (TECH: Cintric) LOINC TEST FLAG RESULT REFERENCE RANGE UPDA ARIES BY 6690-2 Leukocytes [#/volume] in Blood by Automated count N 7.5 10^3/uL 4.5 10^3/uL - 11.5 10^3/uL February 01, 2024 2:02:00 PM UTC (TECH: Cintric) 789-8 Erythrocytes [#/volume] in Blood by Automated count N 4.37 10^6/uL 4.25 10^6/uL - 5.57 10^6/uL February 01, 2024 2:02:00 PM UTC (TECH: Cintric) 718-7 Hemoglobin [Mass/volume] in Blood N 14.0 g/dL 12.0 g/dL - 15.7 g/dL February 01, 2024 2:02:00 PM UTC (TECH: Cintric) 38788-1 Hematocrit [Volume Fraction] of Blood N 40.9 % 36.0 % - 47.0 % February 01, 2024 2:02:00 PM UTC (TECH: Cintric) 787-2 Erythrocyte mean corpuscular volume [Entitic volume] by Automated count N 93.6 fl 80 fl - 95 fl February 01, 2024 2:02:00 PM UTC (TECH: Cintric) 87147-1 Erythrocyte mean corpuscular hemoglobin [Entitic mass] in Blood from Fetus by Automated count N 32.0 pg 27.0 pg - 34.0 pg February 01, 2024 2:02:00 PM UTC (TECH: Cintric) 52410-1 Erythrocyte mean corpuscular hemoglobin concentration [Mass/volume] in Blood from Fetus by Automated count N 34.2 g/dL 32.0 g/dL - 36.0 g/dL February 01, 2024 2:02:00 PM UTC (TECH: Cintric) 03208-1 Platelets [#/volume] in Blood N 251 10^3/uL 150 10^3/uL - 450 10^3/uL February 01, 2024 2:02:00 PM UTC (TECH: Cintric) 54262-3 Erythrocyte distribution width [Ratio] N 12.8 % 12.3 % - 15.1 % February 01, 2024 2:02:00 PM UTC (TECH: Cintric) 66741-5 Platelet mean volume [Entitic volume] in Blood by Automated count N 8.6 fl 7.4 fl - 10.4 fl February 01, 2024 2:02:00 PM UTC (TECH: HC) 79292-2 Granulocytes/100 leukocytes in Blood by Automated count N 51.9 % 40 % - 75 % February 01, 2024 2:02:00 PM UTC (TECH: HC) 736-9 Lymphocytes/100 leukocytes in Blood by Automated count N 36.0 % 15 % - 57 % February 01, 2024 2:02:00 PM UTC (TECH: HC) 5905-5 Monocytes/100 leukocytes in Blood by Automated count N 6.2 % 4.0 % - 12.0 % February 01, 2024 2:02:00 PM UTC (TECH: HC) 713-8 Eosinophils/100 leukocytes in Blood by Automated count H 4.8 % 0.0 % - 4.0 % February 01, 2024 2:02:00 PM UTC (TECH: HC) 706-2 Basophils/100 leukocytes in Blood by Automated count N 0.8 % 0.0 % - 1.0 % February 01, 2024 2:02:00 PM UTC (TECH: HC) 02326-2 Immature granulocytes [#/volume] in Blood N 0.3 % 0.0 % - 0.8 % February 01, 2024 2:02:00 PM UTC (TECH: HC) 61829-0 Granulocytes [#/volume] in Blood by Automated count N 3.91 10^3/uL February 01, 2024 2:02:00 PM UTC (TECH: HC) 731-0 Lymphocytes [#/volume] in Blood by Automated count N 2.71 10^3/uL February 01, 2024 2:02:00 PM UTC (TECH: HC) 742-7 Monocytes [#/volume] in Blood by Automated count N 0.47 10^3/uL February 01, 2024 2:02:00 PM UTC (TECH: HC) 711-2 Eosinophils [#/volume] in Blood by Automated count N 0.36 10^3/uL February 01, 2024 2:02:00 PM UTC (TECH: HC) 704-7 Basophils [#/volume] in Blood by Automated count N 0.06 10^3/uL February 01, 2024 2:02:00 PM [place] (TECH: Cintric) 10589-0 Immature granulocytes [#/volume] in Blood N 0.02 10^3/uL February 01, 2024 2:02:00 PM UT (TECH: Cintric) 75307-1 Manual differential performed [Presence] in Blood N NO February 01, 2024 2:02:00 PM UT (TECH: Cintric) ORDER 200: COMP METABOLIC PA SARAH (LOINC: 64438-3) ORDER DATE: February 01, 2024 1:50:00 PM [place] Specimen Source: Serum/Plasm a Specimen Type: Acellular blo od (serum or plasma) specimen PERFORMING LAB: [address] [id number] Result Comment: Final Result Date: February 01, 2024 2:12:00 PM UT (TECH: Cintric) LOINC TEST FLAG RESULT REFERENCE RANGE UPDA ARIES BY 2951-2 Sodium [Moles/volume ] in Serum or Plasma N 140 mmol/L 136 mmol/L - 145 mmol/L February 01, 2024 2:12:00 PM UT (TECH: Cintric) 2823-3 Potassium [Moles/vol ume] in Serum or Plasma N 4.2 mmol/L 3.5 mmol/L - 5.1 mmol/L February 01, 2024 2:12:00 PM UT (TECH: Cintric) 2075-0 Chloride [Moles/volu me] in Serum or Plasma N 103 mmol/L 98 mmol/L - 107 mmol/L February 01, 2024 2:12:00 PM UTC (TECH: Cintric) 8-9 Carbon dioxide, tota l [Moles/volume] in Serum or Plasma N 27 mmol/L 21 mmol/L - 32 mmol/L February 01, 2024 2:12:00 PM UT (TECH: Cintric) 94768-0 Anion gap 3 in Serum or Plasma N 10.0 February 01, 2024 2:12:00 PM UT (TECH: Cintric) 2345-7 Glucose [Mass/volume ] in Serum or Plasma H 197 mg/dL 70 mg/dL - 110 mg/dL February 01, 2024 2:12:00 PM UTC (TECH: Cintric) 3094-0 Urea nitrogen [Mass/volume] in Serum or Plasma N 17 mg/dL 7 mg/dL - 18 mg/dL February 01, 2024 2:12:00 PM [facility] (TECH: Cintric) 2160-0 Creatinine [Mass/vol ume] in Serum or Plasma H 1.1 mg/dL 0.6 mg/dL - 1.0 mg/dL February 01, 2024 2:12:00 PM [facility] (TECH: Cintric) 3097-3 Urea nitrogen/Creati nine [Mass Ratio] in Serum or Plasma N 15.5 Ratio 9 Ratio - 21 Ratio February 01, 2024 2:12:00 PM [facility] (Prepared Response: Cintric) 44827-2 Glomerular filtratio n rate/1.73 sq M.predicted by Creatinine-based formula (MDRD) L 55 mL/min >60 February 01, 2024 2:12:00 PM [facility] (Prepared Response: Cintric) 2885-2 Protein [Mass/volume ] in Serum or Plasma N 7.6 g/dL 6.4 g/dL - 8.2 g/dL February 01, 2024 2:12:00 PM [facility] ([employer]) 1751-7 Albumin [Mass/volume ] in Serum or Plasma N 3.8 g/dL 3.4 g/dL - 5.0 g/dL February 01, 2024 2:12:00 PM [facility] ([employer]) 34898-5 Calcium [Mass/volume ] in Serum or Plasma N 9.1 mg/dL 8.5 mg/dL - 10.1 mg/dL February 01, 2024 2:12:00 PM [facility] (Prepared Response: Cintric) 66402-5 Calcium [Mass/volume ] corrected for total protein in Serum or Plasma N 9.3 mg/dL 8.5 mg/dL - 1 0.1 mg/dL February 01, 2024 2:12:00 PM [facility] (TECH: Cintric) 1975-2 Bilirubin.total [Mass/volume] in Serum or Plasma N 0.5 mg/dL 0.4 mg/dL - 1.5 mg/dL February 01, 2024 2:12:00 PM [facility] (TECH: Cintric) 1920-8 Aspartate aminotrans ferase [Enzymatic activity/volume] in Serum or Plasma N 16 U/L 15 U/L - 37 U/L February 01, 2024 2:12:00 PM [facility] (TECH: Cintric) 1742-6 Alanine aminotransfe rase [Enzymatic activity/volume] in Serum or Plasma N 20 U/L 12 U/L - 78 U/L February 01, 2024 2:12:00 PM [facility] (TECH: ) 6768-6 Alkaline phosphatase [Enzymatic activity/volume] in Serum or Plasma N 100 U/L 50 U/L - 120 U/L February 01, 2024 2:12:00 PM [facility] (TECH: ) LABORATORY NARRATIVE RESULTS Information is not available RADIOLOGY RESULTS ORDER 300: CTA BRAIN (LOINC: 12904-9) ORDER DATE: February 01, 2024 1:50:00 PM [facility] PERFORMING LAB: [address] [id number] Final Result Date: January 31 3:13:[address] [place] [address] Name: KODY ESQUIVEL Exam Date: 02/01/2024 : 1970 Age 53 years Gender: F Physician: Facility: [facility] Facility HSV: Outpatient Exam: CTA BRAIN EXAMINATION: CTA BRAIN AND NECK. CLINICAL INDICATION: STROKE protocol TECHNIQUE: Axial CT scan images were performed from the vertex to the thoracic inlet with administration of intravenous contrast during the arterial phase and reformatted in coronal and sagittal planes, with additional 3D reconstructions performed. COMPARISON: FINDINGS: VASCULAR: Suboptimal exam with poor contrast opacification of some vessels. Normal 3-vessel aortic arch. Moderate calcified plaques at the right carotid bifurcation with moderate stenosis. Moderate to severe calcified plaques at the left carotid bifurcation with moderate to severe moderate stenosis. The common, internal, and external carotid arteries are patent bilaterally. The vertebral arteries are patent bilaterally The distal internal carotid arteries are patent bilaterally. The anterior cerebral arteries are patent bilaterally. Both middle cerebral arteries are patent and unremarkable to the level of the bifurcation/trifurcation. The vertebrobasilar system and its major branches are patent bilaterally, including bilateral posterior cerebral arteries. Visualized portions of the superior sagittal sinus, inferior sagittal sinus, transverse sinus, and straight sinus are unremarkable. IMPRESSION: Patent cervical and intracranial arteries. Moderate to severe left and moderate right calcified plaques at the carotid bifurcations with moderate to severe left and moderate right stenosis. Further evaluation with carotid duplex ultrasound is recommended. Dictated By: Citlali martines Transcribed By: Citlali martines Transcribed On: 02/01/2024 11:13 AM Electronically signed by: Citlali martines 02/01/2024 Thank you for referring KODY ESQUIVEL to [facility]. Legally authenticated by ROMAN Schofield MD 2024-02-01 11:13:31 ORDER 600: CT BRAIN HEAD WO (LOINC: 25158-8) ORDER DATE: February 01, 2024 1:50:00 PM [facility] PERFORMING LAB: [address] [id number] Final Result Date: January 31 2:59:[address] [place] [address] Name: KODY ESQUIVEL Exam Date: 02/01/2024 : 1970 Age 53 years Gender: F Physician: Facility: [facility] Facility HSV: Outpatient Exam: CT BRAIN HEAD WO EXAMINATION: CT HEAD WITHOUT IV CONTRAST INDICATION: Facial droop. TECHNIQUE: Contiguous axial noncontrast CT images of the head. Coronal and sagittal reformatted images were generated and reviewed. COMPARISON: None FINDINGS: No evidence of acute hemorrhage. No evidence of brain parenchymal ischemia. No extra-axial collection. No mass effect, midline shift, or herniation. Normal ventricular configuration. Visualized orbital structures are unremarkable. Visualized paranasal sinuses are clear No abnormality of the scalp soft tissues. No evidence of skull fracture. IMPRESSION: No acute intracranial abnormality. Dictated By: Citlali martines Transcribed By: Citlali martines Transcribed On: 02/01/2024 10:59 AM Electronically signed by: Citlali martines 02/01/2024 Thank you for referring KODY ESQUIVEL to [facility]. Legally authenticated by ROMAN Schofield MD 2024-02-01 10:59:34 PATHOLOGY NARRATIVE RESULTS Information is not available MICROBIOLOGY RESULTS No Micro Labs/Results Exist for Patient BLOOD ADMIN RESULTS Information is not available TREATMENT PLAN DISCHARGE MEDICATIONS Status RXNORM Medication Dose Route Frequency Dates Comments U pdated By Patient discharge medication information is not available. PATIENT OPEN ORDERS Code System Description Frequency Occurrences Priority [place] [address] [facility] Neck vessels CT angiogram W and WO contrast IV ONE TIME 0 Stat February 01, 2024 1:50:00 PM [place] JUSTUS Rodrigues MD [id number] on February 01, 2024 3:56:00 PM [facility] SCHEDULED PROCEDURES Code System Description Status Scheduled Date Upd ated By Patient scheduled procedure information is not available. MEDICATIONS HOME MEDICATIONS Status RXNORM [facility] Medication Dose Route Frequency Dates Comments Reported By Updated By Active 266424 61969 51727 0 amitriptylin e 100 mg tablet 1.0 TAB BY MOUTH BEDTIME Last Dose: [id number] on February 01, 2024 1:39:45 PM [facility] Active 327001 51322 13369 4 cyclobenzapr ine 10 mg tablet 1.0 TAB BY MOUTH BEDTIME Last Dose: [id number] on February 01, 2024 1:39:46 PM UT Active FreeT extMe d duloxetine 30 mg Capsule, Delayed Release Sprinkle 1.0 CAP BY MOUTH DAILY Last Dose: [id number] on February 01, 2024 1:39:47 PM UT Active FreeT extMe d Humalog Mix 75-25 (U-100) Insulin subcutaneous 50units am; 25units pm 0.0 Last Dose: [id number] on February 01, 2024 1:39:49 PM UT Active 935072 94560 19639 1 Humulin R Regular U-100 Insuln 100 unit/mL solution 0.0 Last Dose: sliding scale [id number] on February 01, 2024 1:39:50 PM [facility] Active 698955 40115 37722 3 levothyroxin e 137 mcg tablet 1.0 TAB BY MOUTH DAILY Last Dose: [id number] on February 01, 2024 1:39:51 PM UT Active 209149 13774 16607 1 lisinopril 10 mg tablet 1.0 TAB BY MOUTH BEDTIME Last Dose: [id number] on February 01, 2024 1:39:52 PM [facility] Active 580996 23880 31277 3 Neupro 4 mg/24 hour patch, 24 hours 1.0 PAT TRANSDE RMAL DAILY Last Dose: [id number] on February 01, 2024 1:39:54 PM UT Active 635020 00374 57478 5 pantoprazole 40 mg tablet, delayed release (enteric coated) 1.0 TAB BY MOUTH DAILY Last Dose: [id number] on February 01, 2024 1:39:55 PM UT Active 876863 85698 62998 8 pravastatin 80 mg tablet 1.0 TAB BY MOUTH BEDTIME Last Dose: [id number] on February 01, 2024 1:39:56 PM UT Active 776277 96040 10362 1 ropinirole 1 mg tablet 1.0 TAB BY MOUTH BEDTIME Last Dose: [id number] on February 01, 2024 1:39:56 PM UT Active 529055 31700 06458 9 sumatriptan succinate 100 mg tablet 1.0 TAB BY MOUTH PRN Last Dose: [id number] on February 01, 2024 1:39:57 PM UT Active 331526 78106 66027 3 trazodone 50 mg tablet 1.0 TAB BY MOUTH BEDTIME Last Dose: [id number] on February 01, 2024 1:39:58 PM [facility] DISCHARGE MEDICATIONS Status RXNORM [facility] Medication Dose Route Frequency Dates Comments Physician Updated By No Discharge Medication Info rmation Available [facility]PAT[facility] MED[facility] Medication Dose Route Frequency Rat e Quantity Dates Comments Physician Updated By Cleo [facility] 256715 9485 2402 503 METHYLPREDN ISOLONE SODIUM SUCC 40 MG SOLR 40.0 MG INTRAV ENOUS ONE TIME ONLY Start: February 01, 2024 2:52:0 0 PM [place] End: February 01, 2024 2:52:0 0 PM [facility] JUSTUS Rodrigues MD INTERF ED on February 01, 2024 2:51:00 PM [facility] SOCIAL HISTORY SOCIAL HISTORY SNOMED-CT Social History Element Description Effective Dates Offered Cessation Comment UpdatedBy [id number] Historical Tobacco smoking status Current Every Day Smoker [id number] on March 27, 2021 8:18:40 AM [facility] SOCIAL HISTORY - Gender Sex: Female SOCIAL HISTORY - Status : status i nformation is not available Intention in Next Year: intention information is not available SOCIAL HISTORY - Sexual Behavior Sexual Orientation Gender Identity SNOMED-CT Description SNO MED -CT Description Activity Level No of Partners Partner Type UpdatedBy Information is not available VITAL SIGNS PATIENT VITAL SIGNS This section displays the mo st recent value for each vital sign as of February 01, 2024 5:02:07 PM [place] Loinc Code Vital Sign Activity Date Result Updated By 8310-5 Body temperature February 01, 2024 1: 34:00 PM UTC 98.6 [degF] [id number] on February 01, 2024 1:36:13 PM UT 8462-4 Diastolic blood pressure February 01, 2024 3:45:00 PM UTC 70.0 mm[Hg] [id number] on February 01, 2024 3:45:49 PM UT 8867-4 Heart rate February 01, 2024 3:4 5:00 PM UTC 80 /min [id number] on February 01, 2024 3:45:[place] [address]-3 Oxygen saturation in Arterial blood by Pulse oximetry February 01, 2024 3:45:00 PM UTC 96.0 % [id number] on February 01, 2024 3:45:49 PM UT 9279-1 Respiratory rate February 01, 2024 3: 45:00 PM UTC 14 /min [id number] on February 01, 2024 3:45:49 PM UT 8480-6 Systolic blood pressure February 01, 2024 3:45:00 PM UTC 135.0 mm[Hg] [id number] on February 01, 2024 3:45:49 PM [place] PEDIATRIC GROWTH CHART - VITAL SIGNS This section displays Head C ircumference Percentile, Weight for Length Percentile and BMI Percentile Loinc Code Pediatric Measure Age (Months) Result Updat ed By No Pediatric Growth Chart Pe rcentile Information Available. HEALTH CONCERNS Problems Concern Status Health Concern problem infor mation not available. Smoking Status Status Years Used Consumed packs p er day Health Concern smoking histo ry information not available. Family History Concern Status Health Concern family histor y information not available. ENCOUNTERS ENCOUNTER INFORMATION Reason for Visit FACIAL SWELLING Admission February 01, 2024 1:25:[address] [id number] Discharge February 01, 2024 4:02:00 PM [facility] DISC HARGED TO HOME OR SELF CARE ENCOUNTER DIAGNOSES Notes information is not mack ilable. Code System Diagnosis Onset Date Diagnosis information is not available. ABSTRACT DIAGNOSES Code System Diagnosis Updated By Abstract Diagnosis informati on is not available. CARE TEAM Care Terminal System Operator Role SRINI KLABER Primary Care GENESIS JEROME Admitting GENESIS JEROME Primary Attending GENESIS JEROME Referring CARE TEAM CARE sports writer Role on Team Status Start Date End Date Update d By JUSTUS DIAZ Referring normal February 01, 2024 2:09:43 PM [facility] February 01, 2024 4:02:00 PM [facility] [id number] on February 01, 2024 2:09:43 PM [facility] JUSTUS DIAZ Attending normal February 01, 2024 2:09:43 PM [facility] February 01, 2024 4:02:00 PM [facility] [id number] on February 01, 2024 2:09:43 PM [facility] JUSTUS DIAZ Admitting normal February 01, 2024 2:09:43 PM [facility] February 01, 2024 4:02:00 PM [facility] [id number] on February 01, 2024 2:09:43 PM [facility] NAFISA MILLIGAN APRN PCP normal January 31, 2 024 1:25:33 PM [facility] February 01, 2024 4:02:00 PM [facility] [id number] on February 01, 2024 2:09:43 PM [facility]
--- OUTSIDE RECORDS SUMMARY | 2024-03-01 08:43 | XMS_ITS | Continuity of Care Document ---
Author Name Unknown Address [address] [place] [phone] Organization [facility] Phone Care Team Providers Care Assistant Activities Director Name Role Phone BESSY, CHANTE E Unavailable Unavailable SRINI SKELTON Primary Care BESSY, CHANTE E Admitting Unavailable BESSY, CHANTE E Primary Attending Unavailable ALLERGIES AND ADVERSE REACTIONS ALLERGIES AND ADVERSE REACTIONS Code System Allergy Substance Adverse Reaction Date Reaction (Severity) Comment Status Reported By Updated By Ryan (Free Text Allergy) Adverse reaction to substance Not Specified active [id number] on December 02, 2023 3:25:21 AM [facility] [id number] SNOMED CT NSAIDs Adverse reaction to substance Not Specified active [id number] on December 02, 2023 3:25:21 AM [facility] FAMILY HISTORY RELATION: Father Status: LIVING SNOMED-CT Diagnosis Age At Onset [id number] Heart disease [id number] Diabetes mellitus [id number] Myocardial infarction RELATION: Father Status: Cause of : Congestive heart failure Age at : 68 SNOMED-CT Diagnosis Age At Onset Information not available RELATION: Mother Status: LIVING SNOMED-CT Diagnosis Age At Onset [id number] Malignant tumor of breast RELATION: Mother Status: LIVING SNOMED-CT Diagnosis Age At Onset [id number] Heart disease RELATION: Mother Status: Cause of : Sarcoidosis Age at : Unknown SNOMED-CT Diagnosis Age At Onset Information not available RESULTS Patient: SIERRA Centeno Date of : 1970 LABORATORY RESULTS Information is not available LABORATORY NARRATIVE RESULTS Information is not available RADIOLOGY RESULTS ORDER 100: HAND LT 3V (LOINC : 36975-1) ORDER DATE: December 02, 2023 3:07:00 AM [facility] PERFORMING LAB: [address] [id number] Final Result Date: December 02, 2023 12:48:[address] [place] [address] Name: KODY ESQUIVEL Exam Date: 12/01/2023 : 1970 Age 53 years Gender: F Physician: CHANTE DOHERTY Facility: [facility] Facility HSV: Outpatient Exam: HAND LT 3V Left hand, THREE VIEW HISTORY: left thumb pain, fall 3 months prior FINDINGS: Three views show no evidence of an acute, displaced fracture or dislocation of the visualized bony architecture. The joint spaces demonstrate mild degenerative changes.. IMPRESSION: No acute bony abnormality. Consider MRI if symptoms persist. The films were reviewed, interpreted, and dictated by Dr. Amado Aguilera Transcribed by Joey Barrett PA-C Dictated By: AMADO AGUILERA Transcribed By: AMADO AGUILERA Transcribed On: 12/02/2023 8:48 AM Electronically signed by: AMADO AGUILERA 12/02/2023 Thank you for referring KODY ESQUIVEL to Psychiatric. Legally authenticated by POPE AMADO Mondragon DO 2023-12-02 08:48:50 PATHOLOGY NARRATIVE RESULTS Information is not available MICROBIOLOGY RESULTS No Micro Labs/Results Exist for Patient BLOOD ADMIN RESULTS Information is not available MEDICATIONS HOME MEDICATIONS Status RXNORM [facility] Medication Dose Route Frequency Dates Comments Reported By Updated By Ramo watkins Humalog Mix 75-25 (U-100) Insulin subcutaneous 50units am; 25units pm 0.0 Last Dose: [id number] on December 02, 2023 3:25:34 AM [facility] Active 832982 08789 18265 1 Humulin R Regular U-100 Insuln 100 unit/mL solution 0.0 Last Dose: sliding scale [id number] on December 02, 2023 3:25:34 AM [facility] Active 935506 10606 40971 3 levothyroxin e 137 mcg tablet 1.0 TAB BY MOUTH DAILY Last Dose: [id number] on December 02, 2023 3:25:34 AM [facility] Active 169530 53894 95974 5 pantoprazole 40 mg tablet, delayed release (enteric coated) 1.0 TAB BY MOUTH DAILY Last Dose: [id number] on December 02, 2023 3:25:34 AM [facility] Active FreeT extMe d duloxetine 30 mg Capsule, Delayed Release Sprinkle 1.0 CAP BY MOUTH DAILY Last Dose: [id number] on December 02, 2023 3:25:35 AM [facility] Active 134198 13927 79522 8 pravastatin 80 mg tablet 1.0 TAB BY MOUTH BEDTIME Last Dose: [id number] on December 02, 2023 3:25:35 AM [facility] Active 169902 82313 50043 1 ropinirole 1 mg tablet 1.0 TAB BY MOUTH BEDTIME Last Dose: [id number] on December 02, 2023 3:25:35 AM [facility] Active 578188 11675 94178 4 cyclobenzapr ine 10 mg tablet 1.0 TAB BY MOUTH BEDTIME Last Dose: [id number] on December 02, 2023 3:25:35 AM [facility] Active 196969 07898 22813 1 lisinopril 10 mg tablet 1.0 TAB BY MOUTH BEDTIME Last Dose: [id number] on December 02, 2023 3:25:35 AM [facility] Active 047166 68220 09347 0 amitriptylin e 100 mg tablet 1.0 TAB BY MOUTH BEDTIME Last Dose: [id number] on December 02, 2023 3:25:35 AM [facility] Active 613026 07397 66632 3 trazodone 50 mg tablet 1.0 TAB BY MOUTH BEDTIME Last Dose: [id number] on December 02, 2023 3:25:35 AM [facility] Active 913396 60004 04187 9 sumatriptan succinate 100 mg tablet 1.0 TAB BY MOUTH PRN Last Dose: [id number] on December 02, 2023 3:25:35 AM [facility] Active 037846 92530 87568 3 Neupro 4 mg/24 hour patch, transdermal 24 hours 1.0 PAT TRANSDE RMAL DAILY Last Dose: [id number] on December 02, 2023 3:25:35 AM [facility] DISCHARGE MEDICATIONS Status RXNORM [facility] Medication Dose Route Frequency Dates Comments Physician Updated By No Discharge Medication Info rmation Available INPATIENT MEDICATIONS Status RXNORM [facility] Medication Dose Route Frequency Rat e Quantity Dates Comments Physician Updated By Cleo [facility] [phone] ACETAMINOPH EN EXTRA STRENGTH 500 MG TABS 500.0 MG BY MOUTH ONE TIME ONLY Start: December 02, 2023 3:30:0 0 AM UTC End: December 02, 2023 3:30:0 0 AM UTC BESSY Centeno MD [facility] ED on December 02, 2023 3:28:00 AM UTC SOCIAL HISTORY SOCIAL HISTORY SNOMED-CT Social History Element Description Effective Dates Offered Cessation Comment UpdatedBy [id number] Historical Tobacco smoking status Current Every Day Smoker [id number] on March 27, 2021 8:18:40 AM UTC SOCIAL HISTORY - Gender Sex: Female SOCIAL [...] value for each vital sign as of December 03, 2023 10:32:27 AM UTC Loinc Code Vital Sign Activity Date Result Updated By 8310-5 Body temperature December 02, 2023 3:04:00 AM UTC 98.1 [degF] [id number] on December 03, 2023 3:35:39 AM UTC 41265-1 Body weight Measured December 02 3:35:40 AM UTC 102.058 kg (225.0 lb) [id number] on December 03, 2023 3:35:40 AM UTC 8462-4 Diastolic blood pressure December 02, 2023 3:04:00 AM UTC 73.0 mm[Hg] [id number] on December 03, 2023 3:35:39 AM UTC 8867-4 Heart rate December 02, 2023 3:34:49 AM UTC 99 /min [id number] on December 03, 2023 3:35:40 AM UTC 65885-4 Oxygen saturation in Arterial blood by Pulse oximetry December 02, 2023 3:34:49 AM UTC 95.0 % [id number] on December 03, 2023 3:35:40 AM UTC 9279-1 Respiratory rate December 02, 2023 3:04:00 AM UTC 20 /min [id number] on December 03, 2023 3:35:39 AM UTC 8480-6 Systolic blood pressure December 02, 2023 3:04:00 AM UTC 148.0 mm[Hg] [id number] on December 03, 2023 3:35:39 AM [place] PEDIATRIC GROWTH CHART - VITAL SIGNS [...] available. ENCOUNTERS ENCOUNTER INFORMATION Reason for Visit THUMB INJURY Admission December 02, 2023 2:59:00 AM UTC [facility] [address] [facility] [address] Discharge December 02, 2023 3:35:00 AM UTC DI SCHARGED TO HOME OR SELF CARE ENCOUNTER DIAGNOSES Notes information is not mack ilable. Code System Diagnosis Onset Date Diagnosis information is not available. 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, UNSPECIFIED [id number] on December 03, 2023 10:31:59 AM UTC E03.9 ICD10 HYPOTHYROIDISM, UNSPECIFIED [id number] on December 03, 2023 10:31:59 AM UTC E78.5 ICD10 HYPERLIPIDEMIA, UNSPECIFIED [id number] on December 03, 2023 10:31:59 AM UT M79.7 ICD10 FIBROMYALGIA TVA7184 on 2023 10:31:59 AM UTC G25.81 ICD10 RESTLESS LEGS SYNDROME PQE72 61 on December 03, 2023 10:31:59 AM UTC F17.210 ICD10 NICOTINE DEPENDE NCE, CIGARETTES, UNCOMPLICATED [id number] on December 03, 2023 10:31:59 AM UT Z79.4 ICD10 TEST SKEIN WINDER (CURRENT) USE OF I NSULIN QDC4946 on December 03, 2023 10:31:59 AM UT Z79.890 ICD10 HORMONE REPLACEMENT THERAPY ULS7005 on December 03, 2023 10:31:59 AM UT Z79.899 ICD10 OTHER TEST SKEIN WINDER (CURRENT) DR UG THERAPY [id number] on December 03, 2023 10:31:59 AM UT Z91.018 ICD10 ALLERGY TO OTHER FOODS PQE72 61 on December 03, 2023 10:31:59 AM [facility] Z88.6 ICD10 ALLERGY STATUS TO ANALGESIC AGENT [id number] on December 03, 2023 10:31:59 AM [facility] CARE TEAM Care Assistant Activities Director Role CHANTE DOHERTY Referring SRINI SKELTON Primary Care CHANTE DOHERTY Admitting CHANTE DOHERTY Primary Attending CARE TEAM CARE manager party Role on Team Status Start Date End Date Update d By BESSY Centeno MD Referring normal December 01 3:20:20 AM [facility] December 01, 2023 4:00:00 AM [facility] [id number] on December 02, 2023 3:20:20 AM [facility] BESSY Centeno MD Attending normal December 01 3:20:20 AM [facility] December 01, 2023 4:00:00 AM [facility] [id number] on December 02, 2023 3:20:20 AM [facility] BESSY Centeno MD Admitting normal December 01 3:20:20 AM [facility] December 01, 2023 4:00:00 AM [facility] [id number] on December 02, 2023 3:20:20 AM [facility] NAFISA MILLIGAN APRN PCP normal December 02, 2023 3:00:06 AM [facility] December 01, 2023 4:00:00 AM [facility] [id number] on December 02, 2023 3:20:20 AM [facility]
--- OUTSIDE RECORDS SUMMARY | 2024-03-01 08:43 | XMS_ITS | Continuity of Care Document ---
Author Name Unknown Address [address] [place], [place] [id number] Organization [facility] Phone Care Team Providers Care Architectural Design Professor Name Role Phone GILMER PEREIRA Primary Attending CLAUDIO DIAS Unavailable SRINI SKELTON Primary Care GILMER PEREIRA Admitting ALLERGIES AND ADVERSE REACTIONS ALLERGIES AND ADVERSE REACTIONS Code System Allergy Substance Adverse Reaction Date Reaction (Severity) Comment Status Reported By Updated By Ryan (Free Text Allergy) Adverse reaction to substance Not Specified active [id number] on December 04, 2023 3:51:57 PM [facility] [id number] SNOMED CT NSAIDs Adverse reaction to substance Not Specified active [id number] on December 04, 2023 3:51:56 PM [facility] FAMILY HISTORY RELATION: Father Status: LIVING SNOMED-CT Diagnosis Age At Onset [id number] Heart disease 67042139 Diabetes mellitus [id number] Myocardial infarction RELATION: Father Status: Cause of : Congestive heart failure Age at : 68 SNOMED-CT Diagnosis Age At Onset Information not available RELATION: Mother Status: LIVING SNOMED-CT Diagnosis Age At Onset [id number] Malignant tumor of breast RELATION: Mother Status: LIVING SNOMED-CT Diagnosis Age At Onset 81953172 Heart disease RELATION: Mother Status: Cause of : Sarcoidosis Age at : Unknown SNOMED-CT Diagnosis Age At Onset Information not available TREATMENT PLAN DISCHARGE MEDICATIONS Status RXNORM Medication Dose Route Frequency Dates Comments U pdated By Patient discharge medication information is not available. PATIENT OPEN ORDERS Code System Description Frequency Occurrences Priority [place] [address] [facility] Finger - left X-ray 3 views ONE TIME 0 Stat December 04, 2023 4:15:00 PM [place] RANDALL SCHERER DO [id number] on December 04, 2023 5:44:00 PM [facility] SCHEDULED PROCEDURES Code System Description Status Scheduled Date Upd ated By Patient scheduled procedure information is not available. MEDICATIONS HOME MEDICATIONS Status RXNORM [facility] Medication Dose Route Frequency Dates Comments Reported By Updated By Active 259161 75562 41599 0 amitriptylin e 100 mg tablet 1.0 TAB BY MOUTH BEDTIME Last Dose: December 04, 2023 3:51:57 PM [facility] Active 050453 96656 31285 4 cyclobenzapr ine 10 mg tablet 1.0 TAB BY MOUTH BEDTIME Last Dose: on December 04, 2023 3:51:58 PM [facility] Active FreeT extMe d duloxetine 30 mg Capsule, Delayed Release Sprinkle 1.0 CAP BY MOUTH DAILY Last Dose: December 04, 2023 3:51:58 PM [facility] Active FreeT extMe d Humalog Mix 75-25 (U-100) Insulin subcutaneous 50units am; 25units pm 0.0 Last Dose: December 04, 2023 3:51:58 PM [facility] Active 223609 11831 59539 1 Humulin R Regular U-100 Insuln 100 unit/mL solution 0.0 Last Dose: sliding scale on December 04, 2023 3:51:58 PM [facility] Active 316926 07664 17098 3 levothyroxin e 137 mcg tablet 1.0 TAB BY MOUTH DAILY Last Dose: December 04, 2023 3:51:58 PM [facility] Active 884370 53130 67101 1 lisinopril 10 mg tablet 1.0 TAB BY MOUTH BEDTIME Last Dose: December 04, 2023 3:51:58 PM [facility] Active 268177 74662 92696 3 Neupro 4 mg/24 hour patch, 24 hours 1.0 PAT TRANSDE RMAL DAILY Last Dose: December 04, 2023 3:51:58 PM [facility] Active 342310 92819 94714 5 pantoprazole 40 mg tablet, delayed release (enteric coated) 1.0 TAB BY MOUTH DAILY Last Dose: December 04, 2023 3:51:59 PM [facility] Active 001674 52446 56498 8 pravastatin 80 mg tablet 1.0 TAB BY MOUTH BEDTIME Last Dose: December 04, 2023 3:51:59 PM [place] Active 521696 62624 09856 1 ropinirole 1 mg tablet 1.0 TAB BY MOUTH BEDTIME Last Dose: [id number] on December 04, 2023 3:51:59 PM [place] Active 696429 29318 14138 9 sumatriptan succinate 100 mg tablet 1.0 TAB BY MOUTH PRN Last Dose: [id number] on December 04, 2023 3:51:59 PM [place] Active 510231 25082 97695 3 trazodone 50 mg tablet 1.0 TAB BY MOUTH BEDTIME Last Dose: [id number] on December 04, 2023 3:51:59 PM UT DISCHARGE MEDICATIONS Status RXNORM ND Medication Dose Route Frequency Dates Comments Physician Updated By No Discharge Medication Info rmation Available INPATIENT MEDICATIONS Status RXNORM ND Medication Dose Route Frequency Rat e Quantity Dates Comments Physician Updated By Discont inued [phone] ACETAMINOPH EN EXTRA STRENGTH 500 MG TABS 500.0 MG BY MOUTH ONE TIME ONLY Start: December 04, 2023 4:44:0 0 PM UTC End: December 04, 2023 4:44:0 0 [facility] on December 04, 2023 4:43:00 PM UT Discont inued 0090 4673 061 ACETAMINOPH EN EXTRA STRENGTH 500 MG TABS 500.0 MG BY MOUTH ONE TIME ONLY Start: December 04, 2023 4:44:0 0 PM UTC End: December 04, 2023 4:44:0 0 PM UTC [facility] ED on December 04, 2023 4:43:00 PM UT SOCIAL HISTORY SOCIAL HISTORY SNOMED-CT Social History Element Description Effective Dates Offered Cessation Comment UpdatedBy [id number] Historical Tobacco smoking status Current Every Day Smoker [id number] on March 27, 2021 8:18:40 AM UT SOCIAL HISTORY - Gender Sex: Female SOCIAL [...] for each vital sign as of December 04, 2023 6:07:03 PM UTC Loinc Code Vital Sign Activity Date Result Updated By 8310-5 Body temperature December 04, 2023 3:44:00 PM UTC 97.3 [degF] [id number] on December 04, 2023 3:46:59 PM UTC 8462-4 Diastolic blood pressure December 04, 2023 5:06:00 PM UTC 75.0 mm[Hg] [id number] on December 04, 2023 5:06:43 PM UTC 8867-4 Heart rate December 04, 2023 5:06:00 PM UTC 85 /min [id number] on December 04, 2023 5:06:43 PM UTC 93440-7 Oxygen saturation in Arterial blood by Pulse oximetry December 04, 2023 5:06:00 PM UTC 100.0 % [id number] on December 04, 2023 5:06:43 PM UTC 9279-1 Respiratory rate December 04, 2023 5:06:00 PM UTC 18 /min [id number] on December 04, 2023 5:06:43 PM UTC 8480-6 Systolic blood pressure November 5:06:00 PM UTC 145.0 mm[Hg] [id number] on December 04, 2023 5:06:43 PM UTC PEDIATRIC GROWTH CHART - VITAL SIGNS This [...] available. ENCOUNTERS ENCOUNTER INFORMATION Reason for Visit FINGER INJURY Admission December 04, 2023 3:35:00 PM UTC [address] [address] Discharge December 04, 2023 5:07:00 PM UTC DI SCHARGED TO HOME OR SELF CARE ENCOUNTER DIAGNOSES Notes information is not mack ilable. Code System Diagnosis Onset Date Diagnosis information is not available. ABSTRACT DIAGNOSES Code System Diagnosis Updated By Abstract Diagnosis informati on is not available. CARE TEAM Care Architectural Design Professor Role GILMER PEREIRA Primary Attending CLAUDIO DIAS Referring SRINI SKELTON Primary Care GILMER PEREIRA Admitting CARE TEAM CARE ballroom dancer Role on Team Status Start Date End Date Update d By ARUN DUMONT Referring normal December 03 3:45:27 PM UTC December 04, 2023 5:07:00 PM UT [id number] on December 04, 2023 3:45:27 PM [facility] RANDALL SCHERER DO Attending normal December 03 3:45:27 PM UT December 04, 2023 5:07:00 PM UT [id number] on December 04, 2023 3:45:27 PM [facility] RANDALL SCHERER DO Admitting normal December 03 3:45:27 PM UTC December 04, 2023 5:07:00 PM UT [id number] on December 04, 2023 3:45:27 PM [facility] NAFISA MILLIGAN APRN PCP normal December 04, 2023 3:35:41 PM UTC December 04, 2023 5:07:00 PM UT [id number] on December 04, 2023 3:45:27 PM [facility]
== END 2024-03-01 23:59 | disposition home or self-care (01) ==
LOC: RT 08:42
PROVIDERS: PCP Nurse Practitioner Family; Visit Provider Nurse Practitioner Family
DX: I65.23 Occlusion and stenosis of bilateral carotid arteries (principal); F17.210 Nicotine dependence, cigarettes, uncomplicated
CPT/HCPCS: 93880

== ENCOUNTER 2024-03-15 09:51 | Outpatient (CLI) | payer MEDICARE, BC, SELFPAY ==
[2024-03-15 10:25] VITALS: PULSE 86; PULSE 88
[2024-03-15] MEDS: ALBUTEROL 0.083% 2.5 MG/3 ML NEB IH (10:25)
== END 2024-03-15 23:59 | disposition home or self-care (01) ==
LOC: RT 09:51
PROVIDERS: PCP Nurse Practitioner Family; Visit Provider Nurse Practitioner Family
DX: R06.02 Shortness of breath (principal)
CPT/HCPCS: 94060; 94618; 94640; 94726; 94729; J7613

== ENCOUNTER 2024-03-25 10:14 | Outpatient (CLI) | payer MEDICARE, BC, SELFPAY ==
--- NOTE | 2024-03-25 10:14 | CA_ITS ---
APPROVED REPORT EXAM: Comprehensive 2D, Doppler, and color-flow Echocardiogram Milk Wagon Driver: KAIA Raza, RVS Ht: 5 ft 3 in Wt: 239lbs BSA: 2.09 BP: 145/80 mmHg Indications: SOB, Atypical CP, COPD, HTN, Smoker, CHRISTINE Echo Enhancing Agent Comments: Poor acoustic windows due to extreme body habitus and lung impedence 2D Dimensions Left Atrium 3.52 cm LA Volume 51.40 mL LA Volume Index 23.80 mL/m2 (M/F) 16-34 M-Mode Dimensions RVDd 2.16 cm (0.9-2.6) LA Diam 4.46 cm (1.9-4.0) LVDd 4.33 cm (3.5-5.7) LVDs 3.10 cm (3.5-5.7) IVSd 1.25 cm (0.6-1.1) PWd 1.06 cm (0.6-1.1) EF (Teich) 57.00% EPSs 0.46 cm FS 29.70% EDV (Teich) 88.20 mL TAPSE 1.98 (<1.7) ESV (Teich) 37.90 mL LV Diastology E Decel Time 197 (160-240 msec) E/A Ratio 1.36 MED A' 10.20 cm/s LAT A' 9.20 cm/s Aortic Valve DINAH Index 0.76 cm2/m2 AoV Peak Lucius. 170.0 (50-130 cm/s) AO Peak GR. 11.50 mmHg AO Mean GR. 7.20 (<5 mmHg) AO VTI 37.0 (18-25 cm) DINAH (VTI) 1.64 (2.5-4.5 cm2) Mitral Valve MV A Velocity 62.0 (40-130 cm/s) E/A Ratio 1.36 Pulmonary Valve PV Peak Velocity 86.0 (50-150 cm/s) Left Ventricle The left ventricle is normal size. The left ventricular systolic function is normal. The left ventricular ejection fraction is within the normal range. There is normal left ventricular wall thickness. There is normal LV segmental wall motion. The left ventricular diastolic function is normal. LVEF is 60%. Right Ventricle The right ventricle is normal size. The right ventricular systolic function is normal. Atria The left atrium size is normal. The right atrium size is normal. There is no Doppler evidence of interatrial shunt. Aortic Valve The aortic valve is mildly thickened. There is no aortic valvular stenosis. No aortic regurgitation is present. Mitral Valve The mitral valve is normal in structure. No evidence of mitral valve stenosis. There is no mitral valve regurgitation noted. Tricuspid Valve The tricuspid valve leaflets are thin and pliable. Trace tricuspid regurgitation. There is insufficient TR jet to estimate RVSP. Pulmonic Valve The pulmonary valve is normal in structure. Trace pulmonic regurgitation. Great Vessels The aortic root is normal in size. The ascending aorta is not well-visualized. IVC is normal in size and collapses >50% with inspiration. Pericardium There is no pericardial effusion. An epicardial fat pad is noted. Other Information Study Quality: Adequate Conclusion Normal biventricular systolic function. No significant valvular stenosis or regurgitation. Electronically signed by : Kira Valdez MD 03/29/2024 01:27:12
--- NOTE | 2024-03-25 10:46 | NM_ITS ---
APPROVED REPORT Exam: Nuclear Stress Test Indication: OBESITY, HTN, DM, HYPERLIPIDEMIA, TOB USE, FM HX, SOB, FATIGUE Patient Location: Outpatient Stress Tech: Yani Calhoun DC Tech:Adri WinstonFALLON RT (R)(N)(M) Ht: 5 ft 4 in Wt: 238 lbs Bra Size: D HR: 80 bpm BP: 122/75 mmHg BSA: 2.11 m2 TID: 1.38 BMI: 40.8 History: OBESITY, HTN, DM, HYPERLIPIDEMIA, TOB USE, FM HX, SOB, FATIGUE Procedure: Patient received 0.4 mg of intravenous Lexiscan, resting heart rate 80 bpm, resting blood pressure 122/75 mmHg, with Lexiscan maximum heart rate achieved was 95 bpm which is % of the maximum predicted heart rate and blood pressure was 107/62 mmHg. Cardiac Stress and Resting SPECT Images: Cardiac Stress and Resting SPECT images were obtained using technetium 99m Myoview 32.7 mCi stress and 10.04 mCi at rest. Resting and stress imaging in supine and prone positions demonstrate no evidence of focal fixed or reversible perfusion defects. There is increase in transient ischemic dilatation ratio (TID 1.38), suggestive of possible multivessel disease or balanced ischemia. Gated imaging demonstrates normal global and regional LV systolic function. LVEF is calculated at 61%. Conclusion: No evidence of focal fixed or reversible perfusion defects. There is increase in transient ischemic dilatation ratio (TID 1.38), suggestive of possible multivessel disease or balanced ischemia. Gated imaging demonstrates normal global and regional LV systolic function. LVEF is calculated at 61%. Electronically signed by : Kira Valdez MD 03/27/2024 12:30:08
[2024-03-25] MEDS: SODIUM CHLORIDE 0.9% 10ML SYR (RAD ONLY) 10 ML IV ×2 (11:00→12:45)
[2024-03-25] MEDS: REGADENOSON 0.4MG/5ML SYRINGE 0.4 MG IV (12:45)
[2024-03-25] MEDS: ISOTOPE MYOVIEW (PER STUDY) 1 DOSE IV (15:02)
== END 2024-03-25 23:59 | disposition home or self-care (01) ==
LOC: RT 10:14
PROVIDERS: PCP Nurse Practitioner Family; Visit Provider Physician Assistant
DX: R07.89 Other chest pain (principal); R06.02 Shortness of breath; I10 Essential (primary) hypertension; F17.210 Nicotine dependence, cigarettes, uncomplicated
CPT/HCPCS: 78452; 93017; 93018; 93306; A9502; J2785

== ENCOUNTER 2024-03-29 12:32 | Outpatient (CLI) | payer MEDICARE, BC, SELFPAY ==
--- NOTE | 2024-03-29 12:36 | XR_ITS ---
FINAL REPORT CLINICAL HISTORY: R Foot pain-- nodule post foot 4th-5th FINDINGS: AP, oblique and lateral views of the right foot were obtained. There is no prior exam for comparison. There is no acute fracture or dislocation. There is degenerative joint disease, most pronounced in the midfoot. Osteophytes along the dorsum of the foot could correlate to palpable abnormalities. Soft tissues are normal. IMPRESSION: Degenerative joint disease with osteophytes along the dorsum foot as detailed above. Reviewed, Interpreted and Dictated by Alyx Diaz MD Transcribed by Latesha Atkinson Authenticated and [facility]
== END 2024-03-29 23:59 | disposition home or self-care (01) ==
LOC: RAD 12:33
PROVIDERS: PCP Nurse Practitioner Family; Visit Provider Nurse Practitioner Family
DX: M79.671 Pain in right foot (principal)
CPT/HCPCS: 73630

== ENCOUNTER 2024-04-20 07:23 | Day surgery (SDC) | payer MEDICARE, BC, SELFPAY ==
[2024-04-20] VITALS (11 sets, daily range): BP systolic 109–157; BP diastolic 52–99; PULSE 76–91; RESP 17–18; TEMP 36.7–36.8; O2SAT 92–95; BMI 40.6
--- NOTE | 2024-04-20 07:18 | IR_ITS ---
APPROVED REPORT Patient Location: Outpatient Turn Machine Operator: FALLON Echeverria RT (R) PROCEDURES Left heart catheterization Left ventriculogram Selective coronary angiogram Intravascular ultrasound of the LAD Drug-eluting stent deployment to the proximal LAD Intravascular ultrasound to the dominant right coronary Drug-eluting stent deployment to the ostial proximal mid and distal dominant right coronary and in contiguous manner INDICATION High risk abnormal Myoview, Angina pectoris, Multivessel coronary to disease, IVUS guidance during complex intervention to reduce mortality Informed consent was obtained prior to the procedure. COMPLICATIONS NONE Estimated Blood Loss: LESS THAN 10 ML TECHNIQUE One percent lidocaine used to anesthetize the right anterior aspect of the wrist. The right radial artery was accessed via the Seldinger technique. A 6 [place] sheath was placed in the right radial artery. 2.5 mg of Verapamil, 800 mcg of nitroglycerin, 1mg Lidocaine and 5000 U Heparin were given through the arterial sheath. The papa catheter was also used to perform left heart catheterization, left ventriculogram and selective coronary angiogram. At the end of the diagnostic angiogram therapeutic heparin was administered giving a therapeutic ACT and a guide catheter was placed in left main artery followed by a Choice PT export wire placed in the LAD. Guide liner was advanced for additional support and intravascular ultrasound probe was advanced which demonstrated a severe ostial stenosis with greater than 70% plaque burden. A 3 mm x 15 mm Andrews frontier stent was deployed at 20 jayce reducing the stenosis. Postintervention IVUS was performed which demonstrated the stent was slightly undersized. A 3.5 x 8 mm noncompliant balloon was deployed at 20 jayce in the ostial proximal and midportion of the stent to further post dilate. Excellent intragraft results were obtained with FLACO-3 flow being present before and after the procedure. Following this the apparatus was removed and placed in the right coronary artery followed by new Choice PT extra-support wire. A 3 mm x 27 mm noncompliant balloon was deployed at 20 jayce up and down the right coronary artery. A 3.5 x 38 mm Andrews frontier stent was placed in the proximal segment and deployed at 20 jayce. A guide liner was used for support. An additional 3.5 x 38 mm Andrews frontier stent was placed distally yet still overlapping and deployed at 14 jayce. The balloon was brought back and deployed at 20 jayce to match the stents. A 3.5 x 12 mm Charlotte frontier stent was deployed at 24 jayce in the proximal to ostial segment however there was a geographical miss in the ostium was not stented. An additional 3.5 x 12 mm Charlotte frontier stent was placed proximal to the first stent yet still overlapping in this time placed into the ostium and an appropriate geographical placement. The balloon was deployed at 24 jayce. The balloon was advanced and deployed at 24 jayce in the proximal portion and ostial portion. After achieving excellent angiographic results the intravascular ultrasound probe was advanced which also demonstrated excellent stent apposition with evidence of coronary artery remodeling. After achieving excellent intragraft results apparatus was removed the sheath was removed good hemostasis was achieved using TR banding patient was transferred to the postop putting in stable condition ANGIOGRAPHIC RESULTS The left main artery Normal The left anterior descending artery Has an ostial 80% stenosis followed by proximal 30 and 40% stenoses along with mid vessel 30% stenoses The circumflex artery Nondominant and has proximal and mid vessel 50% tubular stenosis The right coronary artery Large dominant and has proximal complex 90% stenoses with mid vessel and distal 80% stenosis The CASANOVA ventriculogram reveals Normal 65% The left ventricular end-diastolic pressure 20 mmHg IMPRESSION Severe to critical two-vessel coronary disease as described above Successful stenting of the ostial proximal LAD severe disease reduced to 0% with 1 drug-eluting stent Persistent moderate stenosis in the mid LAD and circumflex artery Successful stenting of the ostial proximal mid and distal dominant right coronary artery critical disease reduced to 0% with 4 contiguous drug-eluting stents PLAN 1. Effient and aspirin 2. Tighter control of diabetes 3. LDL less than 55 to be to the time density statin 4. Recommend sleep study 5. Cardiac rehabilitation 6. Exercise weight loss Electronically signed by : Yariel Vargas MD 04/20/2024 11:31:58
[2024-04-20 07:38] LABS: Basophils # 0.2 K/mm3 (0-0.2); Basophils % 1.6 % (0.1-2.0); Eosinophils # 0.4 K/mm3 (0.0-0.4); Eosinophils % 4.1 % (0.1-12.0); Hematocrit 44.2 % (37.0-47.0); Hemoglobin 14.1 g/dL (12.2-16.2); Lymphocytes # 3.6 K/mm3 (0.7-4.5); Lymphocytes % 37.6 % (10-50); Mean Corpuscular Hemoglobin 32.9 pg (27.0-31.2); Mean Corpuscular Volume 102.8 fl (81-99); Mean Platelet Volume 7.7 fl (7.4-10.4); Monocytes # 0.5 K/mm3 (0.1-1.0); Monocytes % 5.7 % (1.7-9.3); Neutrophils # 4.8 K/mm3 (1.8-7.8); Neutrophils % 51.1 % (37.0-80.0); Platelet Count 296 K/mm3 (142-424); Red Cell Distribution Width 13.7 % (11.5-17.5); White Blood Count 9.5 K/mm3 (4.8-10.8)
[2024-04-20 07:46] LABS: Chloride 108 mmol/L (98-107); Sodium 141 mmol/L (136-145)
[2024-04-20 07:49] LABS: Blood Urea Nitrogen 17 mg/dl (7-17); Creatinine Clearance Estimated 97 mL/min (50-200); Estimated Glomerular Filt Rate 51 ml/min (>60); GFR (African American) 62 ML/MIN (>60)
[2024-04-20 07:50] LABS: Calcium 8.8 mg/dl (8.4-10.2); Carbon Dioxide 28 mmol/L (22.0-30.0); Glucose 136 mg/dl (74-100)
[2024-04-20] MEDS: 0.9 % SODIUM CHLORIDE 500 ML 25 ML IV (10:12)
[2024-04-20] MEDS: HEPARIN 1,000 UNITS/ML 10ML VIAL (CATH LAB) 10000 UNIT IV ×2 (10:12→10:35)
[2024-04-20] MEDS: HEPARIN 1,000 UNITS/500ML NS (CATH LAB) 3000 UNIT IV (10:13)
[2024-04-20] MEDS: diphenhydrAMINE 50MG/ML VIAL 50 MG IV (10:15)
[2024-04-20] MEDS: LIDOCAINE 1% 10ML MDV 20 ML IJ (10:16)
[2024-04-20] MEDS: VERAPAMIL 2.5MG/ML 2ML VIAL 2.5 MG IV (10:17)
[2024-04-20] MEDS: NITROGLYCERIN 800MCG/8ML SYR (CATH LAB) 800 MCG IA (10:54)
[2024-04-20] MEDS: FENTANYL 100MCG/2ML VIAL 50 MCG IV (11:18)
[2024-04-20] MEDS: PRASUGREL 10MG TAB 60 MG PO (11:18)
[2024-04-20] MEDS: MIDAZOLAM HCL 1MG/1ML 5ML VIAL 1 MG IV (11:18)
[2024-04-20] MEDS: IOPAMIDOL-370 (76%);100ML BOTTLE 160 ML IV (14:16)
[2024-04-20 15:40] LABS: CATHL Activated Clotting Time > 400 SEC (74-125)
== END 2024-04-20 14:37 | disposition home or self-care (01) ==
PROVIDERS: PCP Nurse Practitioner Family; Visit Provider Internal Medicine
DX: R93.1 Abnormal findings on diagnostic imaging of heart and coronary circulation (principal); R07.89 Other chest pain; R06.02 Shortness of breath; I25.118 Atherosclerotic heart disease of native coronary artery with other forms of angina pectoris; I77.1 Stricture of artery; R29.6 Repeated falls; E11.9 Type 2 diabetes mellitus without complications; Z79.4 Long term (current) use of insulin; Z79.85 Long-term (current) use of injectable non-insulin antidiabetic drugs; Z79.899 Other long term (current) drug therapy; F17.210 Nicotine dependence, cigarettes, uncomplicated; I65.23 Occlusion and stenosis of bilateral carotid arteries; E66.01 Morbid (severe) obesity due to excess calories; Z68.41 Body mass index [BMI] 40.0-44.9, adult
CPT/HCPCS: 36415; 80048; 85025; 85347; 92928; 92978; 92979; 93458; 99152; 99153; C1725; C1769; C1874; C9600; J1200; J1644; J2250; J3010; Q9967

== ENCOUNTER 2024-04-26 11:15 | Outpatient (CLI) | payer MEDICARE, BC, SELFPAY ==
[2024-04-26 18:32] LABS: Basophils # 0.1 K/mm3 (0-0.2); Basophils % 1.4 % (0.1-2.0); Eosinophils # 0.3 K/mm3 (0.0-0.4); Eosinophils % 4.1 % (0.1-12.0); Hemoglobin 14.3 g/dL (12.2-16.2); Lymphocytes # 2.9 K/mm3 (0.7-4.5); Mean Corpuscular HGB Conc 31.8 g/dL (31.8-35.4); Mean Corpuscular Hemoglobin 32.8 pg (27.0-31.2); Mean Corpuscular Volume 103.2 fl (81-99); Mean Platelet Volume 8.3 fl (7.4-10.4); Monocytes # 0.4 K/mm3 (0.1-1.0); Monocytes % 5.3 % (1.7-9.3); Neutrophils # 4.4 K/mm3 (1.8-7.8); Neutrophils % 54.1 % (37.0-80.0); Platelet Count 290 K/mm3 (142-424); Red Blood Count 4.36 M/mm3 (4.20-5.40); Red Cell Distribution Width 13.6 % (11.5-17.5); White Blood Count 8.1 K/mm3 (4.8-10.8)
[2024-04-26 19:13] LABS: Albumin Level 4.1 g/dl (3.5-5.0); Chloride 106 mmol/L (98-107); Potassium 4.7 mmoL/L (3.5-5.1); Sodium 137 mmol/L (136-145)
[2024-04-26 19:15] LABS: Blood Urea Nitrogen 15 mg/dl (7-17); Estimated Glomerular Filt Rate 65 ml/min (>60); GFR (African American) 78 ML/MIN (>60)
[2024-04-26 19:16] LABS: Alanine Aminotransferase 17 U/L (12-78); Albumin/Globulin Ratio 1.5 (1.1-1.8); Alkaline Phosphatase 115 U/L (38-126); Anion Gap 8.7 mEq/L (5-15); Aspartate Amino Transferase 21 U/L (14-36); Bilirubin,Total 0.6 mg/dl (0.2-1.3); Carbon Dioxide 27 mmol/L (22.0-30.0); Globulin 2.7 g/dL (1.3-3.2); Glucose 179 mg/dl (74-100); Total Protein,Serum 6.8 g/dl (6.3-8.2)
[2024-04-26 19:29] LABS: Microalbumin/Creatinine Ratio 57.5
[2024-04-26 19:45] LABS: Creatinine,Urine Random 99 mg/dL (Not Estab.)
[2024-04-26 19:46] LABS: Hemoglobin A1C 7.9 % (4.0-6.0)
== END 2024-04-26 23:59 | disposition home or self-care (01) ==
LOC: LAB.DROPOF 04-27 14:01
PROVIDERS: PCP Nurse Practitioner Family; Visit Provider Nurse Practitioner Family
DX: E11.9 Type 2 diabetes mellitus without complications (principal); Z79.4 Long term (current) use of insulin; Z79.85 Long-term (current) use of injectable non-insulin antidiabetic drugs
CPT/HCPCS: 80053; 82043; 82570; 83036; 85025

== ENCOUNTER 2024-05-18 06:35 | Outpatient (CLI) | payer MEDICARE, BC, SELFPAY ==
--- NOTE | 2024-05-18 06:41 | XR_ITS ---
FINAL REPORT CLINICAL HISTORY: Foot Pain COMPARISON: None FINDINGS: LEFT FOOT: Three views of the left foot were obtained. There is no acute fracture or dislocation. There is moderate degenerative change present in the midfoot. A plantar calcaneal spur is noted as well. There is no soft tissue abnormality. IMPRESSION: No acute bony abnormality. Moderate degenerative change in the midfoot. Reviewed, Interpreted and Dictated by Yon Carnes III, MD Transcribed by Beba Culp Authenticated and [facility]
--- NOTE | 2024-05-18 06:41 | XR_ITS ---
FINAL REPORT CLINICAL HISTORY: Foot Pain COMPARISON: None FINDINGS: RIGHT FOOT: Three views of the right foot were obtained. There is no acute fracture or dislocation. Moderate degenerative change is present in the midfoot. A plantar calcaneal spur is present. There is no soft tissue abnormality. IMPRESSION: No acute bony abnormality. Moderate degenerative changes present in the midfoot. Reviewed, Interpreted and Dictated by Yon Carnes III, MD Transcribed by Beba Culp Authenticated and [facility]
== END 2024-05-18 23:59 | disposition home or self-care (01) ==
LOC: RAD 06:36
PROVIDERS: PCP Nurse Practitioner Family; Visit Provider Podiatrist
DX: M79.671 Pain in right foot (principal); M79.672 Pain in left foot
CPT/HCPCS: 73630

== ENCOUNTER 2024-06-14 12:18 | Outpatient (CLI) | payer MEDICARE, BC, SELFPAY ==
--- NOTE | 2024-06-14 12:18 | MM_ITS ---
PROCEDURE INFORMATION: Exam: MG Bilateral Screening 3D Mammography Exam date and time: 06/14/2024 12:12 PM Age: 54 years old Clinical indication: Screening mammogram TECHNIQUE: Imaging protocol: Bilateral Screening tomosynthesis and 2D mammography including computer-aided detection (CAD) when performed. COMPARISON: No relevant prior studies available. FINDINGS: MAMMOGRAPHY: Breast composition: There are scattered areas of fibroglandular density. Mass: None. Architectural distortion: No new or suspicious architectural distortion. Calcifications: No new or suspicious calcifications are present Asymmetric density: No new or suspicious asymmetric density is present Skin thickening: None. Axillary adenopathy: None. IMPRESSION: No mammographic evidence of malignancy. Recommend annual screening mammography unless otherwise clinically indicated. ASSESSMENT: BI-RADS category 1: Negative.
== END 2024-06-14 23:59 | disposition home or self-care (01) ==
LOC: RAD 12:18
PROVIDERS: PCP Nurse Practitioner Family; Visit Provider Nurse Practitioner Family
DX: Z12.31 Encounter for screening mammogram for malignant neoplasm of breast (principal)
CPT/HCPCS: 77063; 77067

== ENCOUNTER 2024-08-22 12:31 | Outpatient (CLI) | payer MEDICARE, BC, SELFPAY ==
--- NOTE | 2024-08-22 12:32 | CT_ITS ---
FINAL REPORT TECHNIQUE: Thin section axial images were obtained from the lung apices to the upper abdomen by computed tomography. Reformatted images were obtained and reviewed. This study was performed with techniques to keep radiation doses al low as reasonably achievable (ALARA). Individualized dose reduction techniques using automated exposure control or adjustment of mA and/or kV according to the patient's size were employed. CLINICAL HISTORY: lung cancer screening current smoker 1ppd x40 years COMPARISON: None FINDINGS: CHEST CT LOW DOSE CTDI vol (mGy): 2.90 DLP (mGy-cm): 93.77 There is no axillary adenopathy. There is no mediastinal or hilar mass or adenopathy. The heart is normal in size. There are moderate to severe coronary artery calcifications with presumed coronary artery stents. There is no pericardial or pleural effusion. There is mild emphysema and mild pulmonary scarring. Lung window images demonstrate no suspicious pulmonary nodule or mass. There is mild bronchial wall thickening which is consistent with bronchitis. Limited images of the upper abdomen demonstrate postoperative changes from gastric sleeve and cholecystectomy. IMPRESSION: Lung-RADS category 1. Recommend 12 month follow up low dose chest CT. Reviewed, Interpreted and Dictated by Yon Carnes III, MD Transcribed by Sadie Abdi Authenticated and [facility]
--- NOTE | 2024-08-22 12:33 | XR_ITS ---
FINAL REPORT CLINICAL HISTORY: Neck pain COMPARISON: None FINDINGS: 6 views of the cervical spine were obtained including flexion and extension views. There is no acute fracture. There is no malalignment. Mild and moderate degenerative changes are noted. There is no abnormal movement with flexion or extension. Mild left C5-6 and C6-7 neural foraminal narrowing is noted. IMPRESSION: Mild and moderate degenerative changes with neural foraminal narrowing at C5-6 and C6-7. No abnormal movement with flexion or extension. Reviewed, Interpreted and Dictated by Yon Carnes III, MD Transcribed by Sadie Abdi Authenticated and [facility]
--- NOTE | 2024-08-22 12:33 | XR_ITS ---
FINAL REPORT CLINICAL HISTORY: neck pain COMPARISON: None FINDINGS: NECK SOFT TISSUE Two views of the neck using soft tissue technique show postoperative changes in the anterior neck. The airways appear normal. There is no evidence of airway narrowing. No mass is identified. IMPRESSION: Unremarkable neck exam using soft tissue technique. Reviewed, Interpreted and Dictated by Yon Carnes III, MD Transcribed by Sadie Abdi Authenticated and [facility]
== END 2024-08-22 23:59 | disposition home or self-care (01) ==
LOC: RAD 12:32
PROVIDERS: PCP Nurse Practitioner Family; Visit Provider Internal Medicine Pulmonary Disease
DX: F17.210 Nicotine dependence, cigarettes, uncomplicated (principal); M54.2 Cervicalgia
CPT/HCPCS: 70360; 71271; 72052

== ENCOUNTER 2025-01-12 11:10 | Outpatient (CLI) | payer MEDICARE, OTHER, SELFPAY ==
--- OUTSIDE RECORDS SUMMARY | 2025-01-12 11:12 | XMS_ITS | Data Portability ---
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 Plan of Treatment Reminders Order Date Submit Date Provider Last Modified By Organization Details Last Modified Time Details Appointments None record ed. Lab None record ed. Referral None record ed. Procedures None record ed. Surgeries None record ed. Imaging None record ed. Medication Orders None record ed. Patient TargetsNo targets recorded. Patient Instructions Encounter Date Encounter Id Patient Instructions Last Modified By Organization Details Last Modified Time 12/17/2022 [id number] Risks benefits a nd alternatives of submandibular gland excision were discussed which include but are not limited to bleeding, infection, scarring, damage to the lingual nerve resulting in either temporary or permanent numbness of the tongue, damage to the hypoglossal nerve which could temporarily or permanently damage movement of the tongue and need for further procedures. Patient understands this is not an exhaustive list of all possible risks complications and agrees to proceed. 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 [email or web address] Not available 02/05/2023 16:51:12 Reason for Referral None Reported. Results Created Date Observation Date Name Description Value Unit Range Abnormal Flag Note LastModifiedBy Organization Detail LastModifiedTime 01/21/2001/20/2023 CBC AUTO NO DIFF (HEMO GRAM) WBC 8.6 10 4.5-11 .5 Not Available [facility] (Lab Registration) [address], [place], [address], 01/20/2023 14:30:57 01/21/2001/20/2023 CBC AUTO NO DIFF (HEMO GRAM) RBC 4.47 10 4.25-5 .57 Not Available [facility] (Lab Registration) [address] [place], [address], 01/20/2023 14:30:57 01/21/20 23 01/20/2023 CBC AUTO NO DIFF (HEMO GRAM) HGB 14.1 g/dL 12.0-1 5.7 Not Available [facility] (Lab Registration) [address] [place], [address], 01/20/2023 14:30:57 01/21/20 23 01/20/2023 CBC AUTO NO DIFF (HEMO GRAM) HCT 42.1 % 36.0-4 7.0 Not Available [facility] (Lab Registration) [address] [place], [address], 01/20/2023 14:30:57 01/21/20 23 01/20/2023 CBC AUTO NO DIFF (HEMO GRAM) MCV 94.2 fL 80-95 Not Available [facility] (Lab Registration) [address] [place], [address], 01/20/2023 14:30:57 01/21/20 23 01/20/2023 CBC AUTO NO DIFF (HEMO GRAM) MCH 31.5 pg 27.0-3 4.0 Not Available [facility] (Lab Registration) [address] [place], [address], 01/20/2023 14:30:57 01/21/20 23 01/20/2023 CBC AUTO NO DIFF (HEMO GRAM) MCHC 33.5 g/dL 32.0-3 6.0 Not Available [facility] (Lab Registration) [address] [place], [address], 01/20/2023 14:30:57 01/21/20 23 01/20/2023 CBC AUTO NO DIFF (HEMO GRAM) platelet count 254 10 150-45 0 Not Available [facility] (Lab Registration) [address] [place], [address], 01/20/2023 14:30:57 01/21/20 23 01/20/2023 CBC AUTO NO DIFF (HEMO GRAM) RDW 12.5 % 12.3-1 5.1 Not Available [facility] (Lab Registration) [address] [place], [address], 01/20/2023 14:30:57 01/21/20 23 01/20/2023 CBC AUTO NO DIFF (HEMO GRAM) MPV 9.1 fL 7.4-10 .4 Not Available [facility] (Lab Registration) [address] [place], [address], 01/20/2023 14:30:57 01/21/20 23 01/20/2023 CBC AUTO NO DIFF (HEMO GRAM) note Unles s other lux noted testi ng perfo rmed at: [facility] [address] [facility] [place] [address] [phone] Pablo washburn MD CLIA: [id number] Not Available [facility] (Lab Registration) [address] [place], [address], 01/20/2023 14:30:57 01/21/20 23 01/20/2023 BASIC METAB OLIC PANEL sodium 140 mmol/ L 136-14 5 Not Available [facility] (Lab Registration) [address] [place], [address], 01/20/2023 15:13:24 01/21/20 23 01/20/2023 BASIC METAB OLIC PANEL potassium 4.7 mmol/ L 3.5-5. 1 Not Available [facility] (Lab Registration) [address] [place], [address], 01/20/2023 15:13:24 01/21/20 23 01/20/2023 BASIC METAB OLIC PANEL chloride 104 mmol/ L 98-107 Not Available [facility] (Lab Registration) [address] [place], [address], 01/20/2023 15:13:24 01/21/20 23 01/20/2023 BASIC METAB OLIC PANEL carbon dioxide 31 mmol/ L 21-32 Not Available [facility] (Lab Registration) [address] [place], [address], 01/20/2023 15:13:24 01/21/20 23 01/20/2023 BASIC METAB OLIC PANEL anion gap 5.0 Not Available [facility] (Lab Registration) [address] [place], [address], 01/20/2023 15:13:24 01/21/20 23 01/20/2023 BASIC METAB OLIC PANEL glucose 143 mg/dL 70-110 high Not Available [facility] (Lab Registration) [address] [place], [address], 01/20/2023 15:13:24 01/21/20 23 01/20/2023 BASIC METAB OLIC PANEL blood urea nitrogen 15 mg/dL 7-18 Not Available [facility] (Lab Registration) [address] [place], [address], 01/20/2023 15:13:24 01/21/20 23 01/20/2023 BASIC METAB OLIC PANEL creatinine 1.0 mg/dL 0.6-1. 0 Not Available [facility] (Lab Registration) [address] [place], [address], 01/20/2023 15:13:24 01/21/20 23 01/20/2023 BASIC METAB OLIC PANEL BUN/creatini ne ratio 15.0 ratio 9-21 Not Available [facility] (Lab Registration) [address] [place], [address], 01/20/2023 15:13:24 01/21/20 23 01/20/2023 BASIC METAB OLIC PANEL estimated glom filtration rate 61 mL/mi n >60- Not Available [facility] (Lab Registration) [address] [place], [address], 01/20/2023 15:13:24 01/21/20 23 01/20/2023 BASIC METAB OLIC PANEL calcium 9.3 mg/dL 8.5-10 .1 Not Available [facility] (Lab Registration) [address], [place], [address], 01/20/2023 15:13:24 01/21/20 23 01/20/2023 BASIC METAB OLIC PANEL note Unles s other lux noted testi ng perfo rmed at: [facility] [address] [place] [address] [phone] Pablo washburn MD CLIA: [id number] Not Available [facility] (Lab Registration) [address], [place], [address], 01/20/2023 15:13:24 Result Notes None recorded. Procedures Surgical History Date Name Laterality Status Provider Name and Address Organization Details Recorded Time 09/14/18 95 delivery completed Albina NICOLAS [facility] & [place] 12/17/2022 14:24:43 09/14/18 81 Appendectomy completed Albinamalorie NICOLAS [facility] & [place] 12/17/2022 14:24:27 cholecystectomy completed Albina RECINOS [facility] & [place] 12/17/2022 14:26:55 excision of submandibular gland completed Chris [place] [facility] & [place] 02/03/2023 16:30:24 Imaging Results None recorded. Procedure Notes None recorded. Medical Equipment None Reported. Allergies No known drug allergies Medications Name Sig Start Date Stop Date Status Note LastModified by Organization Details LastModified Time cyclobenzap rine 10 mg tablet TAKE 1 TABLET BY MOUTH EVERY DAY NEEDED FOR MUSCLE SPASMS 2022 active Not Available Not Available Not Avai lable amoxicillin 500 mg capsule TAKE 1 CAPSULE BY MOUTH EVERY 8 HOURS FOR 10 DAYS 12/17 completed Not Available Not Available Not Available Humalog Mix 75-25 (U-100) Insulin 100 unit/mL subcutaneou s suspension INJECT 25 UNITS IN THE EVENING AND 50 UNITS IN THE MORNING active Not Available Not Available No t Available levothyroxi ne 137 mcg tablet TAKE 1 TABLET BY MOUTH EVERY DAY active Not Available Not Available No t Available ropinirole 1 mg tablet TAKE 1 TAB AT BEDTIME FOR RESTLESS LEGS ADMINISTE R 1-3 HOURS BEFORE BEDTIME active Not Available Not Available No t Available clindamycin HCl 300 mg capsule TAKE 1 CAPSULE BY MOUTH EVERY 6 HOURS FOR 5 DAYS 12/17 completed Not Available Not Available Not Available trazodone 50 mg tablet TAKE 1 TABLET BY MOUTH EVERY DAY active Not Available Not Available No t Available azithromyci n 250 mg tablet TAKE 2 TABLETS BY MOUTH TODAY, THEN TAKE 1 TABLET DAILY FOR 4 DAYS 12/17 completed Not Available Not Available Not Available ibuprofen 800 mg tablet TAKE 1 TABLET BY MOUTH EVERY 8 HOURS NEEDED FOR PAIN 12/17 completed Not Available Not Available Not Available sumatriptan 100 mg tablet Take by oral route. active Not Available Not Available No t Available hydrocodone 5 mg-acetamin ophen 325 mg tablet TAKE 1 TABLET BY MOUTH EVERY DAY NEEDED FOR PAIN 12/17 completed Not Available Not Available Not Available hydrocodone 10 mg-acetamin ophen 325 mg tablet TAKE 1 TAB ET BY MOUTH EVERY 6-8 HOURS NEEDED FOR PAIN 12/17 completed Not Available Not Available Not Available oxycodone-a cetaminophe n 5 mg-325 mg tablet TAKE 1 TABLET BY MOUTH EVERY FOUR HOURS NEEDED FOR MODERATE PAIN (4-6 PAIN SCALE) active Not Available Not Available No t Available amoxicillin 875 mg tablet TAKE 1 TABLET BY MOUTH EVERY 12 HOURS FOR 10 DAYS 12/17 completed Not Available Not Available Not Available pravastatin 80 mg tablet TAKE 1 TABLET BY MOUTH EVERY DAY active Not Available Not Available No t Available prednisolon e acetate 1 % eye drops,suspe nsion PLEASE SEE ATTACHED FOR DETAILED DIRECTION S active Not Available Not Available No t Available cephalexin 500 mg capsule TAKE 1 CAPSULE BY MOUTH 3 TIMES A DAY 02/03 completed Not Available Not Available Not Available Humulin R Regular U-100 Insulin 100 unit/mL injection solution INJECT UNDER THE SKIN ACCORDING TO SLIDING SCALE DIRECTED FOR DIABETES active Not Available Not Available No t Available pantoprazol e 40 mg tablet,dar yed release TAKE 1 TABLET BY MOUTH EVERY DAY active Not Available Not Available No t Available naproxen sodium 550 mg tablet TAKE 1 TABLET BY MOUTH EVERY 12 HOURS NEEDED 12/17 completed Not Available Not Available Not Available lisinopril 10 mg tablet TAKE 1 TABLET BY MOUTH EVERY DAY active Not Available Not Available No t Available mupirocin 2 % topical ointment APPLY TO SURGICAL SITE TWICE A DAY active Not Available Not Available No t Available ibuprofen 600 mg tablet TAKE 1 TABLET BY MOUTH EVERY 8 HOURS NEEDED FOR PAIN 12/17 completed Not Available Not Available Not Available methylpredn isolone 4 mg tablets in a dose pack TAKE 6 TABLETS ON DAY 1 DIRECTED ON PACKAGE AND DECREASE BY 1 TAB EACH DAY FOR A TOTAL OF 6 DAYS 12/17 completed Not Available Not Available Not Available amitriptyli ne 100 mg tablet TAKE 1 TABLET BY MOUTH TWICE A DAY FOR FIBROMYAL LOS active Not Available Not Available No t Available duloxetine 30 mg capsule,del ayed release TAKE 1 CAPSULE BY MOUTH EVERY DAY PATIENT NEEDS AN APPT BEFORE ANYMORE REFILLS active Not Available Not Available No t Available chlorhexidi ne gluconate 0.12 % mouthwash STARTING 24HR POST-OP, LIGHTLY SWISH 1/4 CAP FOR 30S AND SPIT, THREE TIMES A DAY 12/17 completed Not Available Not Available Not Available BD Insulin Syringe Ultra-Fine 0.5 mL 30 gauge x 1/2 USE DIRECTED 3 TIMES A DAY active Not Available Not Available No t Available Neupro 4 mg/24 hour transdermal 24 hour patch APPLY 1 PATCH EVERY DAY AFTER REMOVING OLD PATCH active Not Available Not Available No t Available Neupro 2 mg/24 hour transdermal 24 hour patch PLEASE SEE ATTACHED FOR DETAILED DIRECTION S active Not Available Not Available No t Available Flowflex COVID-19 Antigen Home Test kit USE DIRECTED ON PACKAGE 12/17 completed Not Available Not Available Not Available Vitals Date Recorded Body height Body mass index (BMI) Body weight Body temperature Heart rate Systolic blood pressure Diastolic blood pressure Provider Name and Address Organization Details Last Updated DateTime 3 162.56 cm 39.2 kg/m2 473361. 78 g 97.8 [degF] 108 /min 110 mm[Hg] 75 mm[Hg] Albina Stallings [place] [facility] & [place] 3 13:17:59 Date Recorded Body height Body mass index (BMI) Body weight Provider Name and Address Organization Details Last Updated DateTime 02/03/2023 162.56 cm 39.1 kg/m2 934594.06 g [place] [facility] & [place] 02/03/2023 16:29:08 Social History None recorded. Functional Status None recorded. Mental Status None recorded. Family History Relationship Description Onset Age of this Age Resolved Age Notes LastModified by Organization Details LastModified Time Mother Disorder of endocrine system pt. added direct ly (11/09) [email or web address] Not available 11/09/2022 12:30:30 Mother Myocardial infarction pt. added direct ly (11/09) [email or web address] Not available 11/09/2022 12:30:47 Mother Hypercholest erolemia pt. added direct ly (11/09) [email or web address] Not available 11/09/2022 12:31:02 Mother Hypertensive disorder pt. added direct ly (11/09) [email or web address] Not available 11/09/2022 12:31:12 Mother Obesity pt. added direct ly (11/09) [email or web address] Not available 11/09/2022 12:31:27 Father Disorder of endocrine system pt. added direct ly (11/09) [email or web address] Not available 11/09/2022 12:30:30 Father Myocardial infarction pt. added direct ly (11/09) [email or web address] Not available 11/09/2022 12:30:47 Father Hypercholest erolemia pt. added direct ly (11/09) [email or web address] Not available 11/09/2022 12:31:02 Father Hypertensive disorder pt. added direct ly (11/09) [email or web address] Not available 11/09/2022 12:31:12 Father Obesity pt. added direct ly (11/09) [email or web address] Not available 11/09/2022 12:31:27 Brother Disorder of endocrine system pt. added direct ly (11/09) [email or web address] Not available 11/09/2022 12:30:30 Brother Hypercholest erolemia pt. added direct ly (11/09) [email or web address] Not available 11/09/2022 12:31:02 Brother Hypertensive disorder pt. added direct ly (11/09) [email or web address] Not available 11/09/2022 12:31:12 Brother Obesity pt. added direct ly (11/09) [email or web address] Not available 11/09/2022 12:31:27 Paternal Grandmother Disorder of endocrine system pt. added direct ly (11/09) [email or web address] Not available 11/09/2022 12:30:30 Medical History Condition Response Allergies/Hayfever N Heart Problems N None N Heart Conditions N Emphysema N Migraines Y Thyroid Problems Y Glaucoma N Depression N Developmental Delay N Anemia N Immune System Disorder N Anesthesia Complications N Heart Attack ([place]) N Anxiety Disorder N Diabetes Y Bleeding Disorder N Arthritis Y Hearing Loss N Tuberculosis N Acid Reflux (GERD) N Hyperlipidemia Y Cancer N Stroke N Asthma N Sleep Disorder N GERD/Reflux N Heart Disease N Headaches N Fibromyalgia Y Hypertension Y Speech Delay N Kidney Disease Y Gynecological HistoryNo gynecological history recorded. Obstetrics History GPAL:G 0 P 0 0 0 0 Past Encounters Encounter ID Performer Location Encounter Start Date Encounter Closed Date Diagnosis/Indication Diagnosis SNOMED-CT Code Diagnosis ICD10 Code Diagnosis Note [id number] Malina Pierce MD [facility] [place] [id number] [place] [address] 12/17/2022 13:05:35 12/17/2022 13:40:48 Sialoadenitis of the submandibular gland 989179308 K11.20 Submandibu lar lymphadenopathy 622814075 R59.0 [id number] Malina Pierce MD [facility] [place] [id number] [facility] [place] [address] 02/03/2023 16:06:18 02/03/2023 16:36:20 Sialoadenitis of the submandibular gland 357027903 K11.20 Pleased with patient's healing. No sign of infection, no edema. Assured her the pain and stiffness will resolve. Will see her back as needed. Submandibu lar lymphadenopathy 240756711 R59.0 Health Concerns Section Related Observation LastModified by Organization Detai ls LastModified Time None Recorded Concern Status LastModified by Organization Details LastModified Time None Recorded Advance Directives Directive None Recorded Payers Encounter Date Sequence Insurance Name Policy Number Policy Diaz Covered Member ID Diaz Member ID Guarantor Name 12/17/2022 1 [place] [id number] May E Tim [id number] May E Tim 12/17/2022 2 [id number] May E Tim [id number] May E Tim 02/03/2023 1 [place] [id number] May E Tim [id number] May E Tim 02/03/2023 2 [id number] May E Tim [id number] May E Tim Notes Date Note Type Note Provider Name and Address Organization Details Recorded Time 12/17/2022 text/html 52yo female retu rns to the office following up on her right sided neck swelling. States this never really resolved. It will come and go getting as large as a golfball. This is painful for her especially when eating. She would like to discuss removal. Malina Pierce MD [address], [place], [address], [facility] & [place] 12/19/2022 09:12:58 02/03/2023 text/html Patient returns to the office s/p submandibular gland excision. Reports some mild pain and stiffness at her incision site. Malina Pierce MD [address], [place], [address], [facility] - [facility] & [place] 02/05/2023 16:51:20 OBGyn Episode No OBEpisode recorded.
[2025-01-12 12:48] VITALS: BMI 38.7
[2025-01-12 13:27] LABS: Basophils # 0.1 K/mm3 (0-0.2); Basophils % 1.2 % (0.1-2.0); Eosinophils # 0.4 Kmm3 (0.0-0.4); Eosinophils % 3.8 % (0.1-12.0); Hematocrit 41.3 % (37.0-47.0); Hemoglobin 14.1 g/dL (12.2-16.2); Lymphocytes # 3.6 K/mm3 (0.7-4.5); Lymphocytes % 38.3 % (10-50); Mean Corpuscular HGB Conc 34.1 g/dL (31.8-35.4); Mean Corpuscular Hemoglobin 32.6 pg (27.0-31.2); Mean Corpuscular Volume 95.6 fl (81-99); Mean Platelet Volume 8.9 fl (7.4-10.4); Monocytes # 0.6 K/mm3 (0.1-1.0); Monocytes % 5.8 % (1.7-9.3); Neutrophils # 4.8 K/mm3 (1.8-7.8); Neutrophils % 50.6 % (37.0-80.0); Nucleated Red Blood Cells # 0 10^3/uL; Nucleated Red Blood Cells % 0 %; Platelet Count 279 K/mm3 (142-424); Red Blood Count 4.32 M/mm3 (4.20-5.40); Red Cell Distribution Width 12.4 % (11.5-17.5); Red Cell Distribution Width-SD 43.8 fL; White Blood Count 9.4 K/mm3 (4.8-10.8)
[2025-01-12 13:35] LABS: Anion Gap 6.8 mEq/L (5-15); Blood Urea Nitrogen 14 mg/dl (7-17); Calcium 9.6 mg/dl (8.4-10.2); Carbon Dioxide 27 mmol/L (22.0-30.0); Chloride 108 mmol/L (98-107); Creatinine Clearance Estimated 127 mL/min (50-200); Estimated Glomerular Filt Rate 74 ml/min (>60); GFR (African American) 90 ML/MIN (>60); Glucose 69 mg/dl (74-100); Potassium 3.8 mmoL/L (3.5-5.1); Sodium 138 mmol/L (136-145)
== END 2025-01-12 23:59 | disposition home or self-care (01) ==
LOC: PREOP 11:11
PROVIDERS: PCP Nurse Practitioner Family; Visit Provider Orthopaedic Surgery
DX: Z01.812 Encounter for preprocedural laboratory examination (principal)
CPT/HCPCS: 80048; 85025

== ENCOUNTER 2025-01-20 12:10 | Outpatient (CLI) | payer MEDICARE, OTHER, SELFPAY ==
--- NOTE | 2025-01-20 12:14 | XR_ITS ---
FINAL REPORT CLINICAL HISTORY: Low back pain with radiation COMPARISON: None FINDINGS: A single view of the pelvis was obtained. There is no acute fracture or dislocation. The visualized joint spaces are normally aligned. There is no acute soft tissue abnormality IMPRESSION: No acute bony abnormality. Reviewed, Interpreted and Dictated by Alyx Diaz MD Transcribed by Luly Morel Authenticated and [facility]
--- NOTE | 2025-01-20 12:14 | XR_ITS ---
FINAL REPORT CLINICAL HISTORY: Low back pain FINDINGS: Three views of the lumbar spine were obtained. There is no prior exam for comparison. There is no acute fracture or acute malalignment. Vertebral body height is preserved. There is multilevel degenerative disc disease most pronounced at T12-L1. No acute paraspinal abnormality. There is a large amount of retained stool. IMPRESSION: Degenerative disc disease and large amount of retained stool. Reviewed, Interpreted and Dictated by Alyx Diaz MD Transcribed by Luly Morel Authenticated and [facility]
== END 2025-01-20 23:59 | disposition home or self-care (01) ==
LOC: RAD 12:11
PROVIDERS: PCP Internal Medicine; Visit Provider Internal Medicine
DX: M54.50 Low back pain, unspecified (principal); M51.35 Other intervertebral disc degeneration, thoracolumbar region
CPT/HCPCS: 72100; 72170

== ENCOUNTER 2025-01-25 06:01 | Day surgery (SDC) | payer MEDICARE, OTHER, SELFPAY ==
[2025-01-12 14:25] VITALS: BMI 38.7
[2025-01-25] VITALS (10 sets, daily range): BP systolic 98–121; BP diastolic 52–72; PULSE 72–90; RESP 14–18; TEMP 36.1–43; O2SAT 90–98
[2025-01-25 06:43] LABS: POC Glucose,Bedside 121 (70-110)
[2025-01-25] MEDS: LACTATED RINGERS 1000ML 1,000 ML 100 ML IV (06:45)
--- NOTE | 2025-01-25 07:07 | P.PNANES_ITS ---
[facility] Disclaimer: The information contained in this section may have been updated after the patient was seen, as this information can be updated by other users. Medical History Stable angina History of sepsis History of renal failure Tobacco abuse counseling Tobacco abuse Asthma Encounter for screening for malignant neoplasm of lung Smoking greater than 30 pack years CAD (coronary artery disease) Obesity Abnormal findings on diagnostic imaging of heart and coronary circulation COPD with acute exacerbation DDD (degenerative disc disease) GERD (gastroesophageal reflux disease) Hyperlipidemia Hypertension Diabetes Stenosis of carotid artery Atypical chest pain Neuropathy Fibromyalgia Hypothyroid Malignant Neoplasm of Skin History of skin cancer Depression Fibromyalgia Surgical History History of cardiac catheterization History of repair of left rotator cuff History of carpal tunnel surgery of left wrist History of gastric surgery History of left knee replacement History of arthroscopy of left knee History of carpal tunnel surgery of right wrist History of section History of appendectomy H/O heart artery stent H/O submandibular gland removal History of cataract surgery Hx of valvuloplasty Hx of tooth extraction Family History Other Cancer Coronary artery disease Diabetes Social History (Updated 01/25/25 @ 06:33 by Nathalia Stallings RN) Smoking Status: Current every day smoker tobacco type: cigarettes packs per day: 1 alcohol intake: never substance use type: denies use current occupational status: disabled Travel in the last 8 weeks?: None household members: spouse housing: apartment caffeine: No Have you lived/traveled outside [place] in past 30 days?: No Contact w/someone who lives/traveled outside US past 30 days?: No Exposure to someone with infectious disease in past 14 days?: No Do you have a fever (greater than 100.4 F or 38 C)?: No Have you tested positive for COVID-19?: No Exposed to someone with COVID-19 in past 14 days?: No Do you have a sore throat?: No Do you have a cough?: No Do you have any weakness?: No Are you experiencing any nausea/vomitting?: No Do you have any diarrhea?: No Are you experiencing any unusual bleeding?: No Do you have any muscle aches/pain?: No Do you have any abdominal pain?: No Are you experiencing loss of taste or smell?: No [facility] Anesthesia Checklist Patient Identification Patient Identification: Arm Band and Family Structural Data Admitted From: Home Planned Operative Procedure/s: Left 1st Meyta Arthro Consent for Planned Operative Procedure(s) Verified: Yes Verified Documents: Surgical Consent and History and Physical NPO Status Verified Time NPO: 00:00 Additional verifications Patient : No Anesthesia Reactions: No Hx Blood Transfusions: No Blood Transfusion Reaction: No Cephalosporin Allergy: No Previous Colonoscopy: Yes Airway Assessment Mallampati Score:: Class II C-Spine Mobility Assessed: Yes TMJ Mobility Assessed: Yes Dentition: Edentulous Neurological Assessment Level of Consciousness: Awake, Alert, Appropriate and Follows Commands Hx Seizures: No Numbness or tingling in extremities: No Anesthesia Plan Anesthesia Risk discussed: Yes ASA Class: III Anesthesia Type: General w/block Preoperative Comments Pre-Operative Comments: Cardiac stents X5. Gastric reflux. IDDM.
[2025-01-25] MEDS: CEFAZOLIN SODIUM 2 GM in 0.9 % SODIUM CHLORIDE 100 ML IV (07:38)
--- NOTE | 2025-01-25 09:59 | XR_ITS ---
FINAL REPORT CLINICAL HISTORY: first carpal metacarpal arthroplasty with tight rope mGy 1.67 fluoro time 1:03 FINDINGS: FLUOROSCOPY LESS THAN 1 HOUR HISTORY: Fluoroscopy guidance. Fluoroscopic guidance was provided for first carpometacarpal arthroplasty. 2 spot films were obtained. A total of 1:03 minutes of fluoroscopy time were used. Total DAP: 1.67 mGy IMPRESSION: As above. Reviewed, Interpreted and Dictated by Vernon Ness MD Transcribed by Sadie Abdi Authenticated and [facility]
--- NOTE | 2025-01-25 10:12 | P.OP_ITS ---
Date of procedure: 01/25/25 Pre-op Diagnosis:: Left first CMC osteoarthritis Post-op Diagnosis:: Same Procedure performed:: Left first CMC arthroplasty with suspensioplasty Surgeon:: Stan Nieto DO Deputy Harbormaster(s):: [facility] AIDE:: Hiram Allen Anesthesia: GETA Estimated blood loss (mL): 0 Operative findings:: See dictation Operative note:: Patient identified preoperatively. Left wrist marked with yes my initials. Transferred operative suite after undergoing a block. Placed upon the operating bed general anesthesia stockkeeper airway secured. Left upper extremity then prepped and draped normal sterile fashion. Once prepped and draped final operative timeout performed to identify proper patient procedure and extremity. Everyone involved in the case agreed. There is no counter indications beginning. She did receive preoperative antibiotics. Marking pen was used to make planned incision over the first CMC joint. Esmarch was used to exsanguinate the extremity pneumatic tourniquet inflated to 250 mmHg. Skin knife was used to incise through skin careful dissection was taken down to identify the joint capsule of the first CMC joint. Joint capsule was o pened and retracted Providence elevator was used to expose the trapezium bone. Meticulous dissection around the trapezius bone was performed in order to outline the entire bone. Meticulous dissection also around the entire trapezius bone was utilized to remove the trapezius bone with a rongeur care was taken to remove all components of the trapezium bone irrigation of this area was performed. The large ulnar- based osteophyte associated with the trapezium was also removed. Irrigation repeated. Attention was then brought to the suspension plasty X-ray guidance was brought in to identify the base of the second metacarpal head and 45 degree angle guidewire was placed bicortically in the second metacarpal the # guidelines were utilized as a guide and that was overdrilled with a cannulated drill bit. This was then removed and the fiber tack suture anchor 1.3 mm was placed in the the far cortex and deployed manually. This 2 edges of the suture were then tugged to confirm deployment of the anchor and this was confirmed. Attention was then brought to the first metacarpal or x-ray again was utilized to place a initial guidewire followed by the cannulated drill bit for a swivel lock anchor the DX swivel lock SL suture anchor with the forked eyelet 3.5 mm was utilized to grab the suture ends and fixate the suspension plasty into the base of the first metacarpal. Once this complete the free ends were cut there were finger was arranged and traction and compression was visualized live fluoroscopy view to show good suspension of the first CMC joint. Irrigation repeated capsule closed with 2-0 Vicryl subcutaneous 2-0 Vicryl 3-0 nylon the skin sterile dressing placed along with thumb spica splint patient waken from anesthesia taken recovery in stable condition. Condition: stable Disposition: PACU Complications:: None apparent
--- NOTE | 2025-01-25 10:27 | EXP.ANES.I ---
[facility] Anesthesia Record Part I Anesthesia Record I Intake, IV Amount: 1,850 Hydration: Adequate Estimated blood loss (mL): 0 Urine output (mL): 0 Blood Products used (#): none Blood Pressure: 118/68 SaO2: 94 Pulse Rate: 80 Airway Patency: Patent Respiratory Rate: 14 Temperature: 97.3 F Patient is:: Drowsy and Stable Stable to PACU at:: 10:18
--- NOTE | 2025-01-25 11:01 | SUR.PHASEI ---
Patient transfered to post op by stretcher. Vital signs stable and sitting up drinking water. No C/O pain, states that her arm is still very numb. Report given to OSVALDO Colon.
--- NOTE | 2025-01-25 11:58 | EXP.ANES.II ---
[facility] Anesthesia Record Part II Anesthesia Record Part II Discharge Time: 10:48 Destination: Surgical Day Care (OP Surgery) PACU nurse assessment reviewed?: Yes Patient Condition:: Good Anesthesia Complications:: None Swallowing reflex intact?: Yes Airway Patency: Patent Cyanosis?: No Blood Pressure: 103/69 SaO2: 91 Respiratory Rate: 15 Pulse Rate: 81 Temperature: 97.3 F Mental Status: Alert & Oriented Pain level:: 0 Nausea and/or vomitting:: None Intake, IV Amount: 0 Hydration: Adequate
== END 2025-01-25 11:20 | disposition home or self-care (01) ==
PROVIDERS: PCP Internal Medicine; Visit Provider Orthopaedic Surgery
PROC: (CPT 25448; principal; 2025-01-25 07:30)
DX: M18.12 Unilateral primary osteoarthritis of first carpometacarpal joint, left hand (principal); F17.210 Nicotine dependence, cigarettes, uncomplicated; Z79.85 Long-term (current) use of injectable non-insulin antidiabetic drugs; Z88.6 Allergy status to analgesic agent; Z91.018 Allergy to other foods; E11.9 Type 2 diabetes mellitus without complications; I25.118 Atherosclerotic heart disease of native coronary artery with other forms of angina pectoris; J44.9 Chronic obstructive pulmonary disease, unspecified; I10 Essential (primary) hypertension; E78.5 Hyperlipidemia, unspecified; Z79.4 Long term (current) use of insulin; Z79.51 Long term (current) use of inhaled steroids
CPT/HCPCS: 25448; 73120; 76000; 82962; 96374; C1713; C9144; J0690; J1100; J2250; J2405; J3010; J7120

== ENCOUNTER 2025-02-14 11:40 | Outpatient (CLI) | payer MEDICARE, OTHER, SELFPAY ==
--- OUTSIDE RECORDS SUMMARY | 2025-02-14 11:43 | XMS_ITS | Data Portability ---
Author Organization [place] - [facility] - [facility] ADMIN Address [address] [place] [id number] Care Team Providers Care Daycare Assistant Name Role Phone KAVON PERALTA Primary Care Provider [phone] Assessment No assessment recorded. Plan of Treatment [...] By Organization Details Last Modified Time 12/17/2022 [id number] Risks benefits a nd alternatives of submandibular [...] possible risks complications and agrees to proceed. 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 [email or web address] Not available 02/05/2023 16:51:12 Reason for Referral None Reported. Results Created Date Observation Date Name Description Value Unit Range Abnormal Flag Note LastModifiedBy Organization Detail LastModifiedTime 01/21/2001/20/2023 CBC AUTO NO DIFF (HEMO GRAM) WBC 8.6 10 4.5-11 .5 Not Available [facility] (Lab Registration) [address], [place], [address], 01/20/2023 14:30:57 01/21/2001/20/2023 CBC AUTO NO DIFF (HEMO GRAM) RBC 4.47 10 4.25-5 .57 Not Available [facility] (Lab Registration) [address] [place], [address], 01/20/2023 14:30:57 01/21/20 23 01/20/2023 CBC AUTO NO DIFF (HEMO GRAM) HGB 14.1 g/dL 12.0-1 5.7 Not Available [facility] (Lab Registration) [address] [place], [address], 01/20/2023 14:30:57 01/21/20 23 01/20/2023 CBC AUTO NO DIFF (HEMO GRAM) HCT 42.1 % 36.0-4 7.0 Not Available [facility] (Lab Registration) [address] [place], [address], 01/20/2023 14:30:57 01/21/20 23 01/20/2023 CBC AUTO NO DIFF (HEMO GRAM) MCV 94.2 fL 80-95 Not Available [facility] (Lab Registration) [address] [place], [address], 01/20/2023 14:30:57 01/21/20 23 01/20/2023 CBC AUTO NO DIFF (HEMO GRAM) MCH 31.5 pg 27.0-3 4.0 Not Available [facility] (Lab Registration) [address] [place], [address], 01/20/2023 14:30:57 01/21/20 23 01/20/2023 CBC AUTO NO DIFF (HEMO GRAM) MCHC 33.5 g/dL 32.0-3 6.0 Not Available [facility] (Lab Registration) [address] [place], [address], 01/20/2023 14:30:57 01/21/20 23 01/20/2023 CBC AUTO NO DIFF (HEMO GRAM) platelet count 254 10 150-45 0 Not Available [facility] (Lab Registration) [address] [place], [address], 01/20/2023 14:30:57 01/21/20 23 01/20/2023 CBC AUTO NO DIFF (HEMO GRAM) RDW 12.5 % 12.3-1 5.1 Not Available [facility] (Lab Registration) [address] [place], [address], 01/20/2023 14:30:57 01/21/20 23 01/20/2023 CBC AUTO NO DIFF (HEMO GRAM) MPV 9.1 fL 7.4-10 .4 Not Available [facility] (Lab Registration) [address] [place], [address], 01/20/2023 14:30:57 01/21/20 23 01/20/2023 CBC AUTO NO DIFF (HEMO GRAM) note Unles s other lux noted testi ng perfo rmed at: [email or web address] [place] [address] [phone] Pablo washburn MD CLIA: [id number] Not Available [facility] (Lab Registration) [address] [place], [address], 01/20/2023 14:30:57 01/21/20 23 01/20/2023 BASIC METAB OLIC PANEL sodium 140 mmol/ L 136-14 5 Not Available [facility] (Lab Registration) [address] [place], [address], 01/20/2023 15:13:24 01/21/20 23 01/20/2023 BASIC METAB OLIC PANEL potassium 4.7 mmol/ L 3.5-5. 1 Not Available [facility] (Lab Registration) [address] [place], [address], 01/20/2023 15:13:24 01/21/20 23 01/20/2023 BASIC METAB OLIC PANEL chloride 104 mmol/ L 98-107 Not Available [facility] (Lab Registration) [address] [place], [address], 01/20/2023 15:13:24 01/21/20 23 01/20/2023 BASIC METAB OLIC PANEL carbon dioxide 31 mmol/ L 21-32 Not Available [facility] (Lab Registration) [address] [place], [address], 01/20/2023 15:13:24 01/21/20 23 01/20/2023 BASIC METAB OLIC PANEL anion gap 5.0 Not Available [facility] (Lab Registration) [address] [place], [address], 01/20/2023 15:13:24 01/21/20 23 01/20/2023 BASIC METAB OLIC PANEL glucose 143 mg/dL 70-110 high Not Available [facility] (Lab Registration) [address] [place], [address], 01/20/2023 15:13:24 01/21/20 23 01/20/2023 BASIC METAB OLIC PANEL blood urea nitrogen 15 mg/dL 7-18 Not Available [facility] (Lab Registration) [address] [place], [address], 01/20/2023 15:13:24 01/21/20 23 01/20/2023 BASIC METAB OLIC PANEL creatinine 1.0 mg/dL 0.6-1. 0 Not Available [facility] (Lab Registration) [address] [place], [address], 01/20/2023 15:13:24 01/21/20 23 01/20/2023 BASIC METAB OLIC PANEL BUN/creatini ne ratio 15.0 ratio 9-21 Not Available [facility] (Lab Registration) [address] [place], [address], 01/20/2023 15:13:24 01/21/20 23 01/20/2023 BASIC METAB OLIC PANEL estimated glom filtration rate 61 mL/mi n >60- Not Available [facility] (Lab Registration) [address] [place], [address], 01/20/2023 15:13:24 01/21/20 23 01/20/2023 BASIC METAB OLIC PANEL calcium 9.3 mg/dL 8.5-10 .1 Not Available [facility] (Lab Registration) [address], [place], [address], 01/20/2023 15:13:24 01/21/20 23 01/20/2023 BASIC METAB OLIC PANEL note Unles s other lux noted testi ng perfo rmed at: [facility] [address] [employer] [address] [place] [address] [phone] Pablo washburn MD CLIA: [id number] Not Available [facility] (Lab Registration) [address], [place], [address], 01/20/2023 15:13:24 Result Notes None recorded. Procedures Surgical History Date Name Laterality Status Provider Name and Address Organization Details Recorded Time 09/14/18 95 delivery completed Albina NICOLAS [facility] & [place] 12/17/2022 14:24:43 09/14/18 81 Appendectomy completed Albinamalorie NICOLAS [facility] & [place] 12/17/2022 14:24:27 cholecystectomy completed Albina RECINOS [facility] & [place] 12/17/2022 14:26:55 excision of submandibular gland completed Chris Grove [facility] & [place] 02/03/2023 16:30:24 Imaging Results None recorded. Procedure [...] Updated DateTime 3 162.56 cm 39.2 kg/m2 482859. 78 g 97.8 [degF] 108 /min 110 mm[Hg] 75 mm[Hg] Albina Stallings [place] [facility] [place] 3 13:17:59 Date Recorded Body height Body mass index (BMI) Body weight Provider Name and Address Organization Details Last Updated DateTime 02/03/2023 162.56 cm 39.1 kg/m2 799405.06 g Chris Grove [facility] & [place] 02/03/2023 16:29:08 Social History None recorded. Functional [...] available 11/09/2022 12:30:30 Medical History Condition Response None N Emphysema N Depression N Glaucoma N Anesthesia Complications N Anxiety Disorder N Arthritis Y Hearing Loss N Acid Reflux (GERD) N Cancer N Stroke N Fibromyalgia Y Headaches N Speech Delay N Kidney Disease Y Allergies/Hayfever N Heart Problems N Heart Conditions N Migraines Y Thyroid Problems Y Developmental Delay N Anemia N Immune System Disorder N Heart Attack ([place]) N Diabetes Y Bleeding Disorder N Tuberculosis N Hyperlipidemia Y Asthma N Sleep Disorder N GERD/Reflux N Heart Disease N Hypertension Y Gynecological HistoryNo gynecological history recorded. Obstetrics History GPAL:G 0 P 0 0 0 0 Past Encounters Encounter ID Performer Location Encounter Start Date Encounter Closed Date Diagnosis/Indication Diagnosis SNOMED-CT Code Diagnosis ICD10 Code Diagnosis Note [id number] Malina Pierce MD [facility] [place] [address] [address] [place] [id number] 12/17/2022 13:05:35 12/17/2022 13:40:48 Sialoadenitis of the submandibular gland 770786081 K11.20 Submandibu lar lymphadenopathy 213009551 R59.0 [id number] Malina Pierce MD [facility] [place] [address] [address] [facility] [place] [id number] 8 02/03/2023 16:06:18 02/03/2023 16:36:20 Sialoadenitis of the submandibular gland 464193426 K11.20 Pleased with patient's healing. No sign of infection, no edema. Assured her the pain and stiffness will resolve. Will see her back as needed. Submandibu lar lymphadenopathy 742458608 R59.0 Health Concerns Section Related Observation LastModified by Organization Detai ls LastModified Time None Recorded Concern Status LastModified by Organization Details LastModified Time None Recorded Advance Directives Directive None Recorded Payers Insurance Date Sequence Insurance Name Policy Number Policy Diaz Covered Member ID Diaz Member ID Guarantor Name 02/14/2022 1 [place] May Tim [id number] May E Tim 04/02/2024 1 [place] [id number] May E Tim [id number] May E Tim 04/02/2024 2 [place] [id number] May E Tim [id number] May E Tim 02/14/2022 3 [place] May E Tim [id number] May E Tim Notes Date Note Type [...] removal. Malina Pierce MD [address], [place], [address], [facility] 12/19/2022 09:12:58 02/03/2023 text/html Patient returns to the office s/p submandibular gland excision. Reports some mild pain and stiffness at her incision site. Malina Pierce MD [address], [place], [address], [facility] 02/05/2023 16:51:20 OBGyn Episode No OBEpisode recorded.
[2025-02-14 12:25] LABS: Basophils # 0.1 K/mm3 (0-0.2); Basophils % 1.8 % (0.1-2.0); Eosinophils # 0.3 Kmm3 (0.0-0.4); Hematocrit 41.6 % (37.0-47.0); Hemoglobin 13.6 g/dL (12.2-16.2); Immature Granulocytes # 0.02 10^3uL; Immature Granulocytes % 0.3 %; Lymphocytes # 2.5 K/mm3 (0.7-4.5); Lymphocytes % 40.4 % (10-50); Mean Corpuscular HGB Conc 32.7 g/dL (31.8-35.4); Mean Corpuscular Hemoglobin 31.6 pg (27.0-31.2); Mean Corpuscular Volume 96.5 fl (81-99); Mean Platelet Volume 9.2 fl (7.4-10.4); Monocytes # 0.3 K/mm3 (0.1-1.0); Monocytes % 5.3 % (1.7-9.3); Neutrophils # 2.9 K/mm3 (1.8-7.8); Neutrophils % 47.2 % (37.0-80.0); Nucleated Red Blood Cells # 0 10^3/uL; Nucleated Red Blood Cells % 0 %; Platelet Count 271 K/mm3 (142-424); Red Blood Count 4.31 M/mm3 (4.20-5.40); Red Cell Distribution Width 12.4 % (11.5-17.5); Red Cell Distribution Width-SD 44.5 fL; White Blood Count 6.2 K/mm3 (4.8-10.8)
[2025-02-14 12:47] LABS: Chloride 105 mmol/L (98-107); Potassium 5.2 mmoL/L (3.5-5.1); Sodium 137 mmol/L (136-145)
[2025-02-14 12:48] LABS: Iron 122 ug/dL (37-170)
[2025-02-14 12:49] LABS: Alanine Aminotransferase 21 U/L (12-78); Anion Gap 8.2 mEq/L (5-15); Aspartate Amino Transferase 30 U/L (14-36); Bilirubin,Unconjugated 0.3 mg/dL (0.0-1.1); Blood Urea Nitrogen 14 mg/dl (7-17); Carbon Dioxide 29 mmol/L (22.0-30.0); Estimated Glomerular Filt Rate 74 ml/min (>60); GFR (African American) 90 ML/MIN (>60)
[2025-02-14 12:50] LABS: Alkaline Phosphatase 88 U/L (38-126); Bilirubin,Direct 0.1 mg/dl (0.0-0.4); Bilirubin,Indirect 0.3 mg/dL (0.0-0.9); Bilirubin,Total 0.4 mg/dl (0.2-1.3); Calcium 9.4 mg/dl (8.4-10.2); Chol/HDL Ratio 3.1 (1-3.5); Cholesterol 185 mg/dl (140-200); Glucose 222 mg/dl (74-100); HDL Cholesterol 59 mg/dl (40-60); Magnesium 1.7 mg/dl (1.6-2.3); Total Protein,Serum 6.4 g/dl (6.3-8.2); Triglycerides 156 mg/dl (30-150); VLDL Cholesterol 31 mg/dL (0-40)
[2025-02-14 12:58] LABS: Total Iron Binding Capacity 319 ug/dL (265-497)
[2025-02-14 13:06] LABS: Free T4 (Free Thyroxine) 0.83 ng/dl (0.78-2.19)
[2025-02-14 13:18] LABS: Thyroid Stimulating Hormone 2.49 uIU/mL (0.465-4.68)
[2025-02-14 14:15] LABS: Direct LDL Cholesterol 95.47 mg/dL (100-129)
== END 2025-02-14 23:59 | disposition home or self-care (01) ==
LOC: LAB 11:41
PROVIDERS: Nurse Practitioner Family; PCP Internal Medicine; Visit Provider Internal Medicine
DX: I25.10 Atherosclerotic heart disease of native coronary artery without angina pectoris (principal); E78.49 Other hyperlipidemia; I10 Essential (primary) hypertension; E11.59 Type 2 diabetes mellitus with other circulatory complications; I65.23 Occlusion and stenosis of bilateral carotid arteries; E03.9 Hypothyroidism, unspecified; D50.9 Iron deficiency anemia, unspecified
CPT/HCPCS: 36415; 80048; 80061; 80076; 82728; 83540; 83550; 83735; 84439; 84443; 85025

== ENCOUNTER 2025-03-23 15:35 | Outpatient (CLI) | payer MEDICARE, OTHER, SELFPAY ==
--- NOTE | 2025-03-23 16:30 | MR_ITS ---
PROCEDURE INFORMATION: Exam: MR Lumbar Spine Without Contrast Exam date and time: 03/23/2025 3:54 PM Age: 54 years old Clinical indication: Low back pain; Additional info: Ddd on imaging, pain TECHNIQUE: Imaging protocol: Magnetic resonance imaging of the lumbar spine without contrast. COMPARISON: CR XR LUMBAR SPINE 2-3V 01/20/2025 12:20 PM FINDINGS: Bones/joints: Unremarkable. No fracture. Normal alignment. Spinal cord: Visualized cord, conus medullaris and cauda equina are unremarkable without compression. L1-L2: Slight disc bulge and facet hypertrophy producing minimal spinal stenosis. L2-L3: Mild disc bulge combining with bilateral facet and ligamentum flavum hypertrophy to produce [id number] spinal stenosis, moderate bilateral subarticular recess stenosis, and mild bilateral neural foraminal stenosis. L3-L4: Mild disc bulge combining with bilateral facet and ligamentum flavum hypertrophy to produce [id number] spinal stenosis and mild bilateral subarticular recess stenosis. L4-L5: Mild disc bulge combining with bilateral facet and ligamentum flavum hypertrophy to produce [id number]-tf-[id number] spinal stenosis and mild bilateral subarticular recess stenosis. Mild bilateral neural foraminal stenosis. L5-S1: Chronic central disc protrusion producing minimal spinal stenosis. Soft tissues: Unremarkable. Stomach and bowel: There is a dilated and fluid-filled segment of small bowel in the mid abdomen and pelvis. IMPRESSION: 1. No acute abnormality of the lumbar spine. Multilevel degenerative changes are relatively mild and detailed above. 2. There is a dilated and fluid-filled segment of small bowel in the mid abdomen and pelvis. If there is clinical suspicion for ileus or bowel obstruction, consider dedicated abdominal imaging.
[2025-03-23 18:32] LABS: Hemoglobin A1C 10.3 % (4.0-6.0)
== END 2025-03-23 23:59 | disposition home or self-care (01) ==
LOC: RAD 15:36
PROVIDERS: PCP Internal Medicine; Visit Provider Internal Medicine
DX: M47.816 Spondylosis without myelopathy or radiculopathy, lumbar region (principal); R93.3 Abnormal findings on diagnostic imaging of other parts of digestive tract; M51.369 Other intervertebral disc degeneration, lumbar region without mention of lumbar back pain or lower extremity pain; M79.604 Pain in right leg; M79.605 Pain in left leg; M25.50 Pain in unspecified joint; R68.2 Dry mouth, unspecified; E11.9 Type 2 diabetes mellitus without complications
CPT/HCPCS: 72148; 83036; 86225; 86235

== ENCOUNTER 2025-04-24 09:49 | Day surgery (SDC) | payer MEDICARE, OTHER, SELFPAY ==
[2025-04-20 14:27] VITALS: BMI 39.3
[2025-04-24 10:37] VITALS: BP 142/88; PULSE 81; RESP 18; TEMP 36.2; O2SAT 99
[2025-04-24] MEDS: LACTATED RINGERS 1000ML 1,000 ML 50 ML IV (10:50)
[2025-04-24 10:56] LABS: POC Glucose,Bedside 230 (70-110)
--- NOTE | 2025-04-24 11:04 | EXP.HP ---
History of Present Illness *Admission Date: 04/24/25 *Reason for visit:: Personal history of adenomatous colon polyps *History of present illness: Mrs. Dumont is a 55-year-old female who is here for follow-up screening/surveillance colonoscopy. She had a colonoscopy by Dr. Yon Post in April 2019 and had 7 polyps (tubular adenoma x 1/hyperplastic polyps x 6) removed. The examination is deemed medically necessary for screening/surveillance colonoscopy. The patient has been seen, interviewed and examined prior to the procedure by both myself and the anesthesia provider. [facility] Disclaimer: The information contained in this section may have been updated after the patient was seen, as this information can be updated by other users. Medical History (Updated 04/24/25 @ 11:06 by Ko Trejo II, MD) Preop examination Hyperkalemia Stable angina History of sepsis History of renal failure Tobacco abuse counseling Tobacco abuse Asthma Encounter for screening for malignant neoplasm of lung Smoking greater than 30 pack years CAD (coronary artery disease) Obesity Abnormal findings on diagnostic imaging of heart and coronary circulation COPD with acute exacerbation DDD (degenerative disc disease) GERD (gastroesophageal reflux disease) Hyperlipidemia Hypertension Diabetes Stenosis of carotid artery Atypical chest pain Neuropathy Fibromyalgia Hypothyroid Malignant Neoplasm of Skin History of skin cancer Depression Fibromyalgia Surgical History History of cardiac catheterization History of repair of left rotator cuff History of carpal tunnel surgery of left wrist History of gastric surgery History of left knee replacement History of arthroscopy of left knee History of carpal tunnel surgery of right wrist History of section History of appendectomy H/O heart artery stent H/O submandibular gland removal History of cataract surgery Hx of valvuloplasty Hx of tooth extraction Family History Other Cancer Coronary artery disease Diabetes Social History (Updated 04/20/25 @ 14:27 by Jyoti Scott RN) Smoking Status: Current every day smoker tobacco type: cigarettes packs per day: 1 alcohol intake: never substance use type: denies use current occupational status: disabled Travel in the last 8 weeks?: None household members: spouse housing: apartment caffeine: Yes Have you lived/traveled outside US in past 30 days?: No Contact w/someone who lives/traveled outside US past 30 days?: No Exposure to someone with infectious disease in past 14 days?: No Do you have a fever (greater than 100.4 F or 38 C)?: No Have you tested positive for COVID-19?: No Exposed to someone with COVID-19 in past 14 days?: No Do you have a sore throat?: No Do you have a cough?: No Do you have any weakness?: No Do you have any diarrhea?: No Are you experiencing any unusual bleeding?: No Do you have any muscle aches/pain?: No Do you have any abdominal pain?: No Are you experiencing loss of taste or smell?: No Other Medical History Have you received the Flu Vaccine for this season: Yes Have you received the Pneumonia Vaccine: No Review of Systems Review of Systems Review of systems (narrative): Negative *Cardiovascular Comments: Negative *Gastrointestinal Comments: Negative *Genitourinary Comments: Negative *Musculoskeletal Comments: Negative *Neurologic Comments: Negative Meds Home Medications and Allergies Home Medications ?Medication ?Instructions ?Recorded ?Confirmed ?Type insulin lispro protamine-lispro See Rx Instructions .Route 03/02/24 04/20/25 Rx 100 unit/mL (75-25) subcutaneous .COMPLEX #60 mL susp (Humalog Mix 75-25(U-100)Insuln) blood-glucose meter (Blood Glucose #1 ea 03/08/24 04/20/25 Rx Monitoring kit) lancets 30 gauge #200 ea 03/08/24 04/20/25 Rx blood pressure test kit-large #1 ea 07/26/24 04/20/25 Rx (Quick Response BP Monitor-Large Cuff kit) flash glucose sensor (FreeStyle #2 kits 10/13/24 04/20/25 Rx Andrew 14 Day Sensor kit) albuterol sulfate 90 mcg/actuation 2 inh inhalation Q4-6H PRN 01/20/25 04/20/25 Rx aerosol inhaler shortness of breath or wheezing 3 months #25.5 grams aspirin 81 mg tablet,delayed 81 mg PO DAILY #30 tabs 01/20/25 04/20/25 Rx release (Adult Low Dose Aspirin) blood sugar diagnostic (Blood #50 ea 01/20/25 04/20/25 Rx Glucose Test strips) flash glucose scanning reader #2 ea 01/20/25 04/20/25 Rx (FreeStyle Andrew 14 Day Arroyo) fluticasone furoate 100 See Rx Instructions .Route 01/20/25 04/20/25 Rx mcg-vilanterol 25 mcg/dose .COMPLEX #60 ea inhalation powder (Breo Ellipta) nicotine (polacrilex) 2 mg gum 2 mg buccal Q2H #40 ea 01/20/25 04/20/25 Rx pen needle, diabetic 32 gauge x #100 ea 01/20/25 04/20/25 Rx 1/4 (Comfort EZ Pen Rosamond) pravastatin 80 mg tablet See Rx Instructions .Route 01/20/25 04/20/25 Rx .COMPLEX #90 tabs rimegepant 75 mg disintegrating 75 mg PO Q OTHER DAY PRN migraine 01/20/25 04/20/25 Rx tablet (Nurtec ODT) headache #15 tabs sumatriptan succinate 100 mg tablet 100 mg PO DAILY #20 tabs 01/20/25 04/20/25 Rx insulin glargine 100 unit/mL (3 10 unit (0.1 mL) SQ HS #15 mL 01/26/25 04/20/25 Rx mL) subcutaneous pen (Lantus Solostar U-100 Insulin) atogepant 60 mg tablet 60 mg PO DAILY #30 tabs 03/09/25 04/20/25 Rx pregabalin 100 mg capsule (Lyrica) 100 mg PO BID #60 caps 03/23/25 04/20/25 Rx amitriptyline 100 mg tablet See Rx Instructions .Route 04/06/25 04/20/25 Rx .COMPLEX #180 tabs cyclobenzaprine 10 mg tablet See Rx Instructions .Route 04/06/25 04/20/25 Rx .COMPLEX #90 tabs duloxetine 60 mg capsule,delayed 60 mg PO DAILY #90 caps 04/06/25 04/20/25 Rx release levothyroxine 137 mcg tablet 137 mcg PO DAILY #90 tabs 04/06/25 04/20/25 Rx (Levo-T) lisinopril 10 mg tablet See Rx Instructions .Route 04/06/25 04/20/25 Rx .COMPLEX #90 tabs metoprolol succinate 25 mg 25 mg PO DAILY #90 tabs 04/06/25 04/20/25 Rx tablet,extended release 24 hr pantoprazole 40 mg tablet,delayed See Rx Instructions .Route 04/06/25 04/20/25 Rx release .COMPLEX #90 tabs prasugrel HCl 10 mg tablet See Rx Instructions .Route 04/06/25 04/20/25 Rx .COMPLEX #90 tabs trazodone 50 mg tablet See Rx Instructions .Route 04/06/25 04/20/25 Rx .COMPLEX #90 tabs sodium,potassium,mag sulfates 17.5 See Rx Instructions PO .COMPLEX 04/11/25 04/20/25 Rx gram-3.13 gram-1.6 gram oral soln #354 mL (Suprep Bowel Prep Kit) semaglutide 1 mg/dose (4 mg/3 mL) See Rx Instructions .Route 04/12/25 04/20/25 Rx subcutaneous pen injector (Ozempic) .COMPLEX #3 mL Diabetic Shoes (DME) #1 ea 04/20/25 04/20/25 Rx hydrocodone 5 mg-acetaminophen 325 1 tab PO Q6H PRN post op pain #28 04/20/25 04/20/25 Rx mg tablet tabs insulin syringe-needle U-100 0.5 #100 ea 04/20/25 04/20/25 Rx mL 30 gauge x 1/2 insulin regular human 100 unit/mL See Rx Instructions .Route 04/21/25 Rx injection solution (Humulin R .COMPLEX #30 mL Regular U-100 Insulin) New Prescriptions to Start Prescriptions: Allergies Allergy/AdvReac Type Severity Reaction Status Date / Time onion (From ONION Allergy Severe S-ANAPHYLAX Verified 04/20/25 14:26 (FOOD/DRUG)) IS Exam Data for Last 24 hours Vital signs and Labs for Last 24 Hours: Temp Pulse Resp BP Pulse Ox O2 Del Method 97.2 F L 81 18 142/88 H 99 Room Air 04/24/25 10:37 04/24/25 10:37 04/24/25 10:37 04/24/25 10:37 04/24/25 10:37 04/24/25 10:37 Laboratory Results - last 24 hr 04/24/25 10:47: POC Glucose 230 H *Routine HEENT Exam Head: Present normocephalic Eye: Present EOMI and PERRL ENT: Present mucous membranes moist *Routine Neck Exam Neck: Present supple *Routine Respiratory Exam Respiratory: Present CTA bilaterally *Routine Cardiovascular Exam Cardiovascular: Present RRR *Routine Abdominal Exam Abdominal: Present soft and normoactive bowel sounds; Absent tenderness *Routine Rectal Exam Rectal:: deferred *Routine Genitalia Exam Genitalia:: deferred *Routine Extremities Exam Extremities: Absent cyanosis, clubbing or edema *Routine Skin Exam Skin: Present warm; Absent rash *Routine Neurological Exam Neurological: Present alert and oriented X3 Assessment and Plan *Assessment and plan (1) Personal history of adenomatous and serrated colon polyps: Status: Acute Category: Medical Code(s): Z86.0101 - Personal history of adenomatous and serrated colon polyps (2) Screening for colon cancer: Status: Acute Category: Medical Code(s): Z12.11 - Encounter for screening for malignant neoplasm of colon Plan A/P: 1. Personal history of adenomatous colon polyps and screening for colon cancer is the preprocedural diagnosis. The patient will be anesthetized/sedated using MAC sedation. The patient has been seen and examined. Cardiac and lung assessment prior to the examination is stable. Proceed with planned screening/surveillance colonoscopy.
--- NOTE | 2025-04-24 11:08 | EXP.ANES.CKL ---
[facility] Disclaimer: The information contained in this section may have been updated after the patient was seen, as this information can be updated by other users. Medical History (Updated 04/24/25 @ 11:06 by Ko Trejo II, MD) Preop examination Hyperkalemia Stable angina History of sepsis History of renal failure Tobacco abuse counseling Tobacco abuse Asthma Encounter for screening for malignant neoplasm of lung Smoking greater than 30 pack years CAD (coronary artery disease) Obesity Abnormal findings on diagnostic imaging of heart and coronary circulation COPD with acute exacerbation DDD (degenerative disc disease) GERD (gastroesophageal reflux disease) Hyperlipidemia Hypertension Diabetes Stenosis of carotid artery Atypical chest pain Neuropathy Fibromyalgia Hypothyroid Malignant Neoplasm of Skin History of skin cancer Depression Fibromyalgia Surgical History History of cardiac catheterization History of repair of left rotator cuff History of carpal tunnel surgery of left wrist History of gastric surgery History of left knee replacement History of arthroscopy of left knee History of carpal tunnel surgery of right wrist History of section History of appendectomy H/O heart artery stent H/O submandibular gland removal History of cataract surgery Hx of valvuloplasty Hx of tooth extraction Family History Other Cancer Coronary artery disease Diabetes Social History (Updated 04/20/25 @ 14:27 by Jyoti Scott RN) Smoking Status: Current every day smoker tobacco type: cigarettes packs per day: 1 alcohol intake: never substance use type: denies use current occupational status: disabled Travel in the last 8 weeks?: None household members: spouse housing: apartment caffeine: Yes Have you lived/traveled outside US in past 30 days?: No Contact w/someone who lives/traveled outside US past 30 days?: No Exposure to someone with infectious disease in past 14 days?: No Do you have a fever (greater than 100.4 F or 38 C)?: No Have you tested positive for COVID-19?: No Exposed to someone with COVID-19 in past 14 days?: No Do you have a sore throat?: No Do you have a cough?: No Do you have any weakness?: No Do you have any diarrhea?: No Are you experiencing any unusual bleeding?: No Do you have any muscle aches/pain?: No Do you have any abdominal pain?: No Are you experiencing loss of taste or smell?: No [facility] Anesthesia Checklist Patient Identification Patient Identification: Arm Band and Family Structural Data Admitted From: Home Planned Operative Procedure/s: Colonoscopy. Consent for Planned Operative Procedure(s) Verified: Yes Verified Documents: History and Physical NPO Status Verified Time NPO: 00:00 Additional verifications Patient : No Anesthesia Reactions: No Hx Blood Transfusions: No Blood Transfusion Reaction: No Cephalosporin Allergy: No Previous Colonoscopy: Yes Airway Assessment Mallampati Score:: Class I C-Spine Mobility Assessed: Yes TMJ Mobility Assessed: Yes Dentition: Edentulous Neurological Assessment Level of Consciousness: Awake, Alert, Appropriate and Follows Commands Hx Seizures: No Numbness or tingling in extremities: No Anesthesia Plan Anesthesia Risk discussed: Yes ASA Class: III Anesthesia Type: MAC Preoperative Comments Pre-Operative Comments: Cardiac stents X5. Family history of colon cancer. IDDM 230. Hypothyroid, on Levothyroxine.
--- NOTE | 2025-04-24 11:30 | P.PCN_ITS ---
[facility] Procedure Note Date: 04/24/25 Time: 12:04 Procedure Note:: Colonoscopy Procedure Report: Colonoscopy with cold snare polypectomy Endoscopist: Ko Trejo II, MD Referring physician: Yariel Leroy DO Date of Procedure: April 24, 2025 Equipment: Olympus [id number] adult colonoscope Sedation: MAC sedation Indication: Mrs. Dumont is a 55-year-old female who is here for follow-up screening/surveillance colonoscopy. The patient did have a colonoscopy in August 2019 (Yon Post MD) and had 7 polyps removed (tubular adenoma x 1/hyperplastic polyps x 6). The patient reports no abdominal pain, weight loss, change in her bowel habits or rectal bleeding. She does state that her maternal aunt had colon cancer at the age of 50. Procedure: Prior to the procedure, a history and physical exam was performed, and patient's medications and allergies were reviewed. The risks, benefits and alternatives of the sedation and procedure were discussed with the patient. All questions were answered and informed consent was obtained. The patient was brought to the procedure room. Patient identification and proposed procedure were verified by the physician and the nurse. The patient was placed in a left lateral decubitus position and the scope was passed under direct vision. Throughout the procedure, the patient's blood pressure, pulse, and oxygen saturations were monitored continuously. The colonoscopy was accomplished without difficulty. The patient tolerated the procedure well. Findings: On digital rectal examination there was normal rectal tone. There were no external hemorrhoids. The colonoscope was introduced through the anal canal to the rectum and advanced to the cecum. The ileocecal valve and appendiceal orifice were identified. The scope was advanced a short distance into the ileum which appeared grossly normal. The scope was then withdrawn into the colon. There were 9 colon polyps (ascending x 3 (4, 4 and 5 mm), transverse x 2 (3 and 6 mm), descending x 2 (5 and 5 mm) and sigmoid x 2 (4 and 6 mm)). These were all removed via cold snare polypectomy. The remaining cecum, ascending, transverse, descending, sigmoid and rectum were grossly normal. There was a marked amount of brown liquid stool and some semisolid residue throughout the colon making visualization fair to poor. There were no other mucosal abnormalities identified. Upon retroflexion within the rectum there were grade 2 internal hemorrhoids. The preparation was fair to poor throughout with [place] Preparation Score of 5 out of 9. The cecal time was 12 minutes. Impression: 1. Colonic polyps x 9 2. Fair to poor bowel preparation 3. Grade 2 internal hemorrhoids Plan: I will recommend repeat surveillance colonoscopy again in 3 years based upon the bowel preparation and number of adenomatous polyps.
[2025-04-24 12:07] VITALS: BP 116/60; PULSE 63; RESP 17; O2SAT 95
[2025-04-24 12:17] VITALS: BP 118/67; PULSE 63; RESP 17; O2SAT 97
[2025-04-24 12:27] VITALS: BP 114/68; PULSE 63; RESP 17; O2SAT 98
[2025-04-24 12:37] VITALS: BP 130/68; PULSE 62; RESP 17; O2SAT 98
== END 2025-04-24 12:45 | disposition home or self-care (01) ==
PROVIDERS: PCP Internal Medicine; Visit Provider Internal Medicine Gastroenterology
PROC: 0DJD8ZZ Inspection of Lower Intestinal Tract, Via Natural or Artificial Opening Endoscopic (ICD-10-PCS; CPT 45378; principal; 2025-04-24 11:30)
DX: Z12.11 Encounter for screening for malignant neoplasm of colon (principal); D12.4 Benign neoplasm of descending colon; D12.2 Benign neoplasm of ascending colon; D12.5 Benign neoplasm of sigmoid colon; K64.1 Second degree hemorrhoids; Z86.0101 Personal history of adenomatous and serrated colon polyps; I25.10 Atherosclerotic heart disease of native coronary artery without angina pectoris; J44.9 Chronic obstructive pulmonary disease, unspecified; E11.9 Type 2 diabetes mellitus without complications; K21.9 Gastro-esophageal reflux disease without esophagitis; E78.5 Hyperlipidemia, unspecified; I10 Essential (primary) hypertension; E03.9 Hypothyroidism, unspecified; E66.9 Obesity, unspecified; F17.210 Nicotine dependence, cigarettes, uncomplicated; Z79.4 Long term (current) use of insulin; Z79.899 Other long term (current) drug therapy; Z79.82 Long term (current) use of aspirin
CPT/HCPCS: 45385; 82962; J2003; J2704; J7120

== ENCOUNTER 2025-06-26 09:30 | Outpatient (CLI) | payer MEDICARE, OTHER, SELFPAY ==
--- NOTE | 2025-06-26 09:31 | XR_ITS ---
FINAL REPORT CLINICAL HISTORY: left hand injury FINDINGS: AP, oblique, and lateral views of the left hand were obtained. There is no prior exam for comparison. There is no acute fracture of the left hand. The trapezium is likely surgically resected. The joint spaces are preserved. The soft tissues are normal. IMPRESSION: No acute osseous abnormality of the left hand. Reviewed, Interpreted and Dictated by Alyx Diaz MD Transcribed by Sadie Abdi Authenticated and [facility]
--- OUTSIDE RECORDS SUMMARY | 2025-06-26 09:34 | XMS_ITS | Clinical Summary ---
Author Organization [facility] Address [address] [place] [address] Care Team Providers Care Mold Dresser Name Role Phone Sean Murphy MD Primary Care Provider [phone] Allergies No known active allergies Medications insulin regular (humuLIN R) 500 UNIT/ML CONCENTRATED injection Inject 2-12 Units under the skin 3 (Three) Times a Day Before Meals. Active docusate sodium (COLACE) 100 MG capsule Take 100 mg by mouth 2 (Two) Times a Day. Active pravastatin (PRAVACHOL) 40 MG tablet Take 40 mg by mouth Daily. Active nadolol (CORGARD) 40 MG tablet Take 40 mg by mouth Daily. Active amitriptyline (ELAVIL) 100 MG tablet Take 100 mg by mouth Every Night. Active baclofen (LIORESAL) 20 MG tablet Take 20 mg by mouth 3 (Three) Times a Day. Active cyclobenzaprine (FLEXERIL) 10 MG tablet Take 10 mg by mouth 3 (Three) Times a Day As Needed. Active traZODone (DESYREL) 50 MG tablet Take 50 mg by mouth Every Night. Active vitamin D (ERGOCALCIFEROL) 74304 UNITS capsule capsule Take 50,000 Units by mouth 1 (One) Time Per Week. Active lisinopril (PRINIVIL,ZESTRIL ) 5 MG tablet Take 5 mg by mouth Daily. Active HYDROcodone-aceta minophen (VICODIN) 5-500 MG per tablet Take 1 tablet by mouth 3 (Three) Times a Day. Active traMADol (ULTRAM) 50 MG tablet Take 50 mg by mouth Every 6 (Six) Hours As Needed. Active VENTOLIN HFA 108 (90 BASE) MCG/ACT inhaler INHALE 2 PUFFS BY MOUTH EVERY 4 HOURS NEEDED 5 7 Active levothyroxine (SYNTHROID, LEVOTHROID) 112 MCG tablet Take 1 tablet by mouth Daily. 2 7 Active hydrochlorothiazi de (MICROZIDE) 12.5 MG capsuleIndication s:Dependent edema TAKE 1 CAPSULE BY MOUTH DAILY. 30 capsule 7 Active Active Problems Problem Noted Date Diagnosed Date Type 2 diabetes mellitus wit h hyperglycemia, with long-term current use of insulin Plantar fasciitis Osteoarthritis Neuropathy Migraine headache Hypothyroidism Hyperlipidemia Hypertension Fibromyalgia Depression Degenerative lumbar disc Family History Medical History Relation Name Comments Diabetes Brother Coronary artery disease Father Diabetes Father Heart attack Father Heart failure Father Hyperlipidemia Father Hypertension Father Breast cancer Mother Diabetes Mother Heart attack Mother Hypertension Mother Relation Name Status Comments Brother Father Mother Alive Social History Tobacco Use Types Packs/Day Years Used Date Smoking Tobacco: Former Cigarettes Q uit: 09/30/2016 Smokeless Tobacco: Never Alcohol Use Standard Drinks/Week Comments No 0 (1 standard drink = 0.6 oz pur e alcohol) Abuse Screen Answer Date Recorded Unsafe at Home or Work/School Not on file Feels Threatened by Someone? Not on file 07/2023 Does Anyone Keep You from Co ntacting Others or Doint Things Outside the Home? Not on file 06/24/2023 Physical Sign of Abuse Present Not on file 1 Housing Stability Answer Date Recorded Current Living Arrangements Not on file 06/14 Potentially Unsafe Housing Conditions Not on lubna e 06/24/2023 Family and Community Support Answer Tim e Recorded Help with Day-to-Day Activities Not on file 06/24/2023 Lonely or Isolated Not on file 06/24/2023 Employment Answer Date Recorded Do you want help finding or keeping work or a brady b? Not on file 06/24/2023 Disabilities Answer Date Recorded Concentrating, Remembering, or Making Decisions Difficulty Not on file 06/24/2023 Doing Errands Independently Difficulty Not on fi le 06/24/2023 Education Answer Date Recorded Help with school or training? Not on file Preferred Language Not on file 06/24/2023 Comments Unknown Sex and Gender Information Value Date Recorded Sex Assigned at Not on file Legal Sex Female 2:34 PM EST Gender Identity Not on file Sexual Orientation Not on file Occupation Industry Job Start Date Job End Date disabled Not on file Not on file Not on file Last Filed Vital Signs Vital Sign Reading Time Taken Comments Blood Pressure 120/90 01/28/2017 9:27 AM EDT Pulse 78 01/28/2017 9:27 AM EDT Temperature 36.8 C (98.2 F) 12/29/2016 7:26 AM EDT Respiratory Rate - - Oxygen Saturation 97% 01/28/2017 9:27 AM EDT Inhaled Oxygen Concentration - - Weight 124 kg (274 lb) 01/28/2017 9:27 AM EDT Height 161.3 cm (5' 3.5 ) 01/28/2017 9:27 AM EDT Body Mass Index 47.78 01/28/2017 9:27 AM EDT Plan of Treatment Health Maintenance Due Date Last Done Comments Annual Gynecologic Pelvic an d Breast Exam 1968 COLOGUARD 2013 COLON CANCER SCREENING 5 YEA R SIGMOIDOSCOPY 2013 COLONOSCOPY [address] CANCER SCREENING 2013 CT COLONOGRAPHY 2013 FECAL OCCULT BLOOD TEST 2013 FIT Testing (1 year) 2013 ANNUAL PHYSICAL 11/28/2016 HEPATITIS C SCREENING 11/28/2016 LIPID PANEL 11/11/2017 11/11/2016 (Patient-Reported (Performed Externally)) Pneumococcal Vaccine 50+ (2 of 2 - PCV) 2018 03/20/2015 ZOSTER VACCINE (1 of 2) 2018 MAMMOGRAM 10/15/2018 10/15/2016 (Patient-Reported (Performed Externally)) TDAP/TD VACCINES (2 - Td or Tdap) 11/11/2020 11/11/2010 (Patient-Reported (Performed Externally)) INFLUENZA VACCINE 04/14/2025 07/18/2020, (Patient-Reported (Performed Externally)) URINE MICROALBUMIN-CREATININ E RATIO (uACR) Discontinued 10/14/2016 (Patient-Reported (Performed Externally)) HEMOGLOBIN A1C Discontinued 11/11/2016 (Patient-Reported (Performed Externally)) Insurance MEDICARE A & B [id number] MED[employer]AGE Care Teams Mold Dresser Relationship Specialty Start Date End Date Sean Murphy MD [address] [place] [id number] PCP - General Family Medicine 01/23/23
--- OUTSIDE RECORDS SUMMARY | 2025-06-26 09:34 | XMS_ITS | Patient Health Record ---
[facility] [address] [id number] Care Team Providers Care Wire Winder Name Role Phone Mane Denson Primary Care Provider Medications Medication SIG (Take, Route, Frequency, Duration) Notes Start Date End Date Status traZODone HCl 50 MG 1/2 to 1 tab(s) orally bed time as needed Active Levothyroxine Sodium 112 MCG 1 tab(s) orally once a day Active RELI- ON ULTIMA DIRECTED TWICE DAILY NEEDED *Please review for potential replacement for e-prescription and drug interaction check* 07/14/2012 Active Meloxicam 15 MG 1 tab(s) orally once a day Active Baclofen 10 MG 1 tab(s) orally twice a day Active Lantus SoloStar 100 UNIT/ML 16 units subcutaneously once daily 01/08/2012 Active BD Pen Needle Short U/F 31G X 8 MM 1 once daily 05/31/2012 Active Cyclobenzaprine HCl 10 MG 1 tab(s) orally once a day (QHS) Active Nadolol 20 MG 1 tab(s) orally once a day Active Pravastatin Sodium 40 MG 1 tab(s) orally once a day (at bedtime) 01/08/2012 Active Gabapentin 600 MG 1 cap(s) orally twice a day 07/14/2012 Active metFORMIN HCl 1000 MG 1 tab(s) orally twice a day Active glipiZIDE 10 MG 1 tab(s) orally twice a day Active Cymbalta 60 MG 1 cap(s) orally once a day 07/09/2012 Active Problems Problem Type SNOMED Code ICD Code Onset Dates Problem Status W/U Status Risk Notes Problem Type II diabetes mellitus without complication (677163736) DM II [Diabetes mellitus type II] (250.00) Active confirmed Problem Hyperlipidaemia (28886295) Hyperlipidemia NOS (272.4) Active confirmed Problem Hypertension (31566792) Hypertension (401.9) Active confirmed Problem Hypothyroidism (31657255) Hypothyroidism NOS (244.9) Active confirmed Problem Fibromyalgia (212102866) Fibromyalgia (729.1) Active confirmed Plan Of Treatment No Information Insurance Providers Payer Name Payer Address Payer Phone Subscriber Number Group Number Insured Name Patient Relationship to Insured Coverage Start Date Coverage End Date [facility] [address] [place] [address] [id number] KODY ESQUIVEL Self - patient is the insured Medical (General) History Medical History History ICD Code type 2 diabetes hypertension hypercholestrolemia Hypothyroidism neuropathy plantar fascitis Degenerative Disc Disease Arthritis migraine headache Surgical History Surgery Date(Month/Year) Appendectomy 1981 Cyst Removed from [place] 1981 1994 [place] Teeth Removal 1998 Right Foot Surgery 2008 Left Shoulder Bone Spur Removed 2008 Galbladder Removal 2008 Hospitalization History Reason Date(Month/Year) [place]- Child 1994 [facility] Stay- Pleurosy 2010 [place]- Child 1991 [facility] ER- Neck & Back Pain 04/03/12 [facility] ER- Right foot pain 05/12/12 [facility] ER- Right Foot pain 07/04/12
== END 2025-06-26 23:59 | disposition home or self-care (01) ==
LOC: RAD 09:31
PROVIDERS: PCP Internal Medicine; Visit Provider Orthopaedic Surgery
DX: M79.642 Pain in left hand (principal)
CPT/HCPCS: 73130